=== PATIENT | female | born 1975 | race Hispanic/Latino ===

== ENCOUNTER 2016-09-07 15:28 | Inpatient (IN) | payer MEDICAID ==
[2016-09-07 16:17] LABS: Basophils % (Auto) 0.1 % (0.0-1.8); Hematocrit 30.9 % (30.3-42.9); Mean Corpuscular HGB Conc 32 % (30-34); Mean Corpuscular Volume 80 fl (79-97); Platelet Count 236 K/mm3 (140-440); Red Blood Count 3.89 M/mm3 (3.65-5.03); Red Cell Distribution Width 17.7 % (13.2-15.2); White Blood Count 4.4 K/mm3 (4.5-11.0)
[2016-09-07 16:18] LABS: Mean Corpuscular Hemoglobin 26 pg (28-32)
[2016-09-07 16:36] LABS: Anion Gap 21 mmol/L; BUN/Creatinine Ratio 11.42; Blood Urea Nitrogen 8 mg/dL (7-17); Calcium 7.5 mg/dL (8.4-10.2); Carbon Dioxide 16 mmol/L (22-30); Chloride 108.1 mmol/L (98-107); Glucose 82 mg/dL (65-100); Potassium 3.9 mmol/L (3.6-5.0); Sodium 141 mmol/L (137-145)
[2016-09-07 18:31] LABS: INR 1.4 (0.87-1.13); Partial Thromboplastin Time 37.6 Sec. (24.2-36.6)
--- NOTE | 2016-09-07 20:02 | XRay Report ---
FINAL REPORT PROCEDURE: XR CHEST 1V AP TECHNIQUE: Chest radiograph anteroposterior view. CPT 39113 HISTORY: Shortness of breath and chest pain COMPARISON: No prior studies are available for comparison. FINDINGS: Heart: Normal. Mediastinum/Vessels: Normal contour. Lungs/Pleural space: No infiltrate, effusion, or pneumothorax. Bony thorax: No acute osseous abnormality. Life support devices: Right MediPort catheter tip is in the superior vena cava. IMPRESSION: No radiographic evidence of acute cardiopulmonary abnormality.
[2016-09-07] MEDS ORDERED: NACL 0.9% 500 ML 500 ML IV ONE (20:47)
--- NOTE | 2016-09-07 20:47 | Emergency Department Report ---
HPI - General Chief Complaint: Chest Pain Time Seen by Provider: 09/07/16 20:17 - HPI HPI: This is a 40-year-old Afro-Q[place] female who presents the emergency department with complaint of generalized chest pain, shortness of breath and lower extremity swelling is been going on for the past few days. The patient was recently at [facility] for similar symptoms and said she had a cardiac stent placed at that time. She has a history of recently diagnosed leukemia for which she has not yet started any type of chemotherapy or radiation treatment. She also has a history of lupus and hypertension. After leaving [facility] she was supposed to be started on some relative but the insurance would not cover it and therefore she has not been taking any anticoagulation. She does appear to have a previous history of CVA and pulmonary embolism as well. Her primary care physician is also her oncologist and that is Dr. Garza but she says she has been unable to get in touch with him. She does not have a color stripper. ED Past Medical Hx - Past Medical History Previous Medical History?: Yes Hx Hypertension: Yes Hx CVA: Yes Hx Congestive Heart Failure: Yes Hx Seizures: Yes Additional medical history: Lupas, Pulmonary embolus - Surgical History Past Surgical History?: Yes Additional Surgical History: Right chest port - Social History Smoking Status: Never Smoker Substance Use Type: Prescribed ED Review of Systems ROS: Stated complaint: CHEST PAIN/LAURIE/ABD PAIN Other details as noted in HPI Comment: All other systems reviewed and negative Constitutional: denies: chills, fever Eyes: denies: eye pain, eye discharge, vision change Respiratory: shortness of breath. denies: cough Cardiovascular: chest pain, edema Gastrointestinal: denies: abdominal pain, nausea, diarrhea Genitourinary: denies: urgency, dysuria, discharge Musculoskeletal: denies: back pain, joint swelling, arthralgia Skin: denies: rash, lesions Neurological: denies: headache, weakness, paresthesias Physical Exam - Physical Exam Vital Signs: Vital Signs 09/07/16 09/07/16 09/07/16 15:42 18:48 19:04 Temperature 98.6 F 98.5 F Pulse Rate 120 H 16 L Respiratory 20 16 16 Rate Blood Pressure 110/79 Blood Pressure 107/76 [Left] O2 Sat by Pulse 100 100 100 Oximetry 09/07/16 19:26 Temperature 98 F Pulse Rate 83 Respiratory 18 Rate Blood Pressure Blood Pressure 105/75 [Left] O2 Sat by Pulse 100 Oximetry Physical Exam: GENERAL: The patient is well-developed well-nourished. HEENT: Normocephalic. Atraumatic. Extraocular motions are intact. Patient has moist mucous membranes. Pupils equal reactive to light bilaterally. NECK: Supple. Trachea is midline. CHEST/LUNGS: Clear to auscultation. There is no respiratory distress noted. There is a port in the right chest wall. HEART/CARDIOVASCULAR: Regular. There is mild to moderate tachycardia. There is no gallop rub or murmur. Chest pain is not reproducible to palpation of chest wall. ABDOMEN: Abdomen is soft, nontender. Patient has normal bowel sounds. There is no abdominal distention. SKIN: Skin is warm and dry. There is some mild pitting edema to the bilateral lower extremities. NEURO: The patient is awake, alert, and oriented. The patient is cooperative. The patient has no focal neurologic deficits. The patient has normal speech. MUSCULOSKELETAL: There is no tenderness or deformity. There is no limitation range of motion. There is no evidence of acute injury. ED Course Vital Signs 09/07/16 09/07/16 09/07/16 15:42 18:48 19:04 Temperature 98.6 F 98.5 F Pulse Rate 120 H 16 L Respiratory 20 16 16 Rate Blood Pressure 110/79 Blood Pressure 107/76 [Left] O2 Sat by Pulse 100 100 100 Oximetry 09/07/16 19:26 Temperature 98 F Pulse Rate 83 Respiratory 18 Rate Blood Pressure Blood Pressure 105/75 [Left] O2 Sat by Pulse 100 Oximetry ED Medical Decision Making - Lab Data Result diagrams: 09/07/16 16:00 09/07/16 16:00 - EKG Data -: EKG Interpreted by Me EKG shows normal: sinus rhythm, axis (left axis deviation), intervals, QRS complexes (low voltage), ST-T waves (nonspecific ST-T changes) Rate: tachycardia (120 bpm) - EKG Data When compared to previous EKG there are: previous EKG unavailable Interpretation: other (left axis deviation, low voltage QRS, nonspecific ST-T changes, tachycardic) - Radiology Data Radiology results: report reviewed, image reviewed interpreted by me: Chest x-ray did not show any acute process. Heart is normal shape and size. No effusions. No pneumothorax. No signs of pneumonia seen. CT angiography of the chest does not show any pulmonary embolism, dissection or any acute process. - Medical Decision Making 40-year-old female with history of lupus, leukemia and recent cardiac stent who presents with chest pain, shortness of breath and lower extremity edema. Patient's labs have mostly been unremarkable except for a slightly elevated and equivocal d-dimer. CT angiography did not show any PE, dissection or any acute process. However the patient has received multiple doses of pain medication and some IV fluid resuscitation and she still remains quite tachycardic. She also continues to complain of chest discomfort. For these reasons the patient will be admitted to hospital for further evaluation and treatment and has been accepted for admission by the hospitalist, Dr. Mo. - Differential Diagnosis TN, PE, CHF, pneumonia, costochondritis Critical Care Time: No Critical care attestation.: If time is entered above; I have spent that time in minutes in the direct care of this critically ill patient, excluding procedure time. ED Disposition Clinical Impression: Tachycardia, Lower extremity edema Dyspnea Qualifiers: Dyspnea type: shortness of breath Qualified Code(s): R06.02 - Shortness of breath Chest pain Qualifiers: Chest pain type: unspecified Qualified Code(s): R07.9 - Chest pain, unspecified Lupus Qualifiers: Systemic lupus erythematosus type: unspecified Systemic lupus erythematosus organ involvement: unspecified Qualified Code(s): M32.9 - Systemic lupus erythematosus, unspecified Disposition: OP ADMIT IP TO THIS HOSP Is pt being admited?: Yes Does the pt Need Aspirin: Yes Condition: Stable Instructions: Chest Pain (ED) Referrals: PRIMARY CARE, [Primary Care Provider] - 3-5 Days Time of Disposition: 00:02
[2016-09-07] MEDS ORDERED: SUBLIMAZE IV ONE ×2 (20:48→21:00)
[2016-09-07] MEDS ORDERED: NACL ONE (21:28)
--- NOTE | 2016-09-07 22:31 | Cat Scan Report ---
FINAL REPORT PROCEDURE: CT ANGIO CHEST TECHNIQUE: Computerized tomographic angiography of the chest was performed after the IV injection of iodinated nonionic contrast including image processing. The image data was postprocessed using 2-dimensional multiplanar reformatted (MPR) and 3-dimensional (MIP and/or volume rendered) techniques. HISTORY: Chest pain, elevated dimer COMPARISON: Radiograph 09/07/2016 FINDINGS: Bilateral breast implants are present. Right MediPort catheter is in place, tip at the cavoatrial junction. Heart and pericardium: No pericardial effusion or thickening. Thoracic aorta: No aneurysm or dissection. Pulmonary vasculature: Normal. Lymph nodes: Right axillary lymph nodes measure up to 7 millimeters in short axis. Lungs: Normal. Pleural space: No effusion, thickening, or pneumothorax. Musculoskeletal structures: No significant abnormality. Upper abdominal structures: No significant abnormality. IMPRESSION: No evidence of pulmonary emboli
[2016-09-07] MEDS ORDERED: DILAUDID IV ONE (23:27)
[2016-09-07] MEDS ORDERED: HEPARIN SUB-Q SCH (23:45)
--- NOTE | 2016-09-07 23:56 | History and Physical Report ---
History of Present Illness Date of examination: 09/07/16 Date of admission: 09/07/16 History of present illness: HPI: 40-year-old Afro-Irish female presents to the emergency department with complaint of generalized chest pain, shortness of breath and lower extremity swelling for the past few days. The patient was recently at [facility] for similar symptoms and had a cardiac stent placed at that time. She has a history of recently diagnosed leukemia for which she has not yet started any type of chemotherapy or radiation treatment. She also has a history of lupus and hypertension. After leaving [facility] she was supposed to be started on some medicine but the insurance would not cover it and therefore she has not been taking any chemo but very poor historian.. She does appear to have a previous history of CVA and pulmonary embolism as well. Her primary care physician /oncologist is Dr. Garza . She does not have a security services specialist. ED Past Medical Hx - Past Medical History Previous Medical History?: Yes Hx Hypertension: Yes Hx CVA: Yes Hx Congestive Heart Failure: Yes Hx Seizures: Yes Additional medical history: Lupus, Pulmonary embolus - Surgical History Past Surgical History?: Yes Additional Surgical History: Right chest port - Social History Smoking Status: Never Smoker Substance Use Type: Prescribed ED Review of Systems ROS: Stated complaint: CHEST PAIN/LAURIE/ABD PAIN Other details as noted in HPI Comment: All other systems reviewed and negative Constitutional: denies: chills, fever Eyes: denies: eye pain, eye discharge, vision change Respiratory: shortness of breath. denies: cough Cardiovascular: chest pain, edema Gastrointestinal: denies: abdominal pain, nausea, diarrhea Genitourinary: denies: urgency, dysuria, discharge Musculoskeletal: denies: back pain, joint swelling, arthralgia Skin: denies: rash, lesions Neurological: denies: headache, weakness, paresthesias Past History Past Surgical History: Other (Port) Social history: no significant social history, full code. denies: smoking, alcohol abuse, prescription drug abuse Family history: hypertension Medications and Allergies Allergies Allergy/AdvReac Type Severity Reaction Status Date / Time meperidine HCl [From Demerol] Allergy Shortness Verified 09/07/16 15:41 of Breath metoclopramide HCl Allergy Shortness Verified 09/07/16 15:41 [From Reglan] of Breath metronidazole [From Flagyl] Allergy Hives Verified 09/07/16 15:41 morphine Allergy Shortness Verified 09/07/16 15:41 of Breath Active Meds: Active Medications Heparin Sodium (Porcine) (Heparin) 5,000 unit SUB-Q Q8HR SARTHAK Review of Systems All systems: negative Exam - Physical Exam Narrative exam: In slight distress sec to pain all over. - Constitutional Vitals: Temp Pulse Resp BP Pulse Ox 98 F 118 H 18 113/76 100 09/07/16 19:26 09/07/16 23:18 09/07/16 23:18 09/07/16 23:18 09/07/16 23:18 General appearance: Present: no acute distress, well-nourished - EENT Eyes: Present: PERRL ENT: hearing intact, clear oral mucosa - Neck Neck: Present: supple, normal ROM - Respiratory Respiratory effort: normal Respiratory: bilateral: CTA - Cardiovascular Heart Sounds: Present: S1 & S2. Absent: rub, click - Extremities Extremities: pulses symmetrical, No edema Peripheral Pulses: within normal limits - Abdominal General gastrointestinal: Present: soft, non-tender, non-distended, normal bowel sounds Female genitourinary: Present: normal - Integumentary Integumentary: Present: clear, warm, dry - Musculoskeletal Musculoskeletal: gait normal, strength equal bilaterally - Psychiatric Psychiatric: appropriate mood/affect, intact judgment & insight - Neurologic Neurologic: CNII-XII intact, moves all extremities - Allied Health Allied health notes reviewed: nursing Results - Labs CBC & Chem 7: 09/07/16 16:00 09/07/16 16:00 Labs: Laboratory Last Values WBC 4.4 K/mm3 (4.5-11.0) L 09/07/16 16:00 RBC 3.89 M/mm3 (3.65-5.03) 09/07/16 16:00 Hgb 10.0 gm/dl (10.1-14.3) L 09/07/16 16:00 Hct 30.9 % (30.3-42.9) 09/07/16 16:00 MCV 80 fl (79-97) 09/07/16 16:00 MCH 26 pg (28-32) L 09/07/16 16:00 MCHC 32 % (30-34) 09/07/16 16:00 RDW 17.7 % (13.2-15.2) H 09/07/16 16:00 Plt Count 236 K/mm3 (140-440) 09/07/16 16:00 Lymph % (Auto) 12.0 % (13.4-35.0) L 09/07/16 16:00 [place] % (Auto) 3.4 % (0.0-7.3) 09/07/16 16:00 Eos % (Auto) 0.0 % (0.0-4.3) 09/07/16 16:00 Baso % (Auto) 0.1 % (0.0-1.8) 09/07/16 16:00 Lymph # 0.5 K/mm3 (1.2-5.4) L 09/07/16 16:00 [place] # 0.1 K/mm3 (0.0-0.8) 09/07/16 16:00 Eos # 0.0 K/mm3 (0.0-0.4) 09/07/16 16:00 Baso # 0.0 K/mm3 (0.0-0.1) 09/07/16 16:00 Seg Neutrophils % 84.5 % (40.0-70.0) H 09/07/16 16:00 Seg Neutrophils # 3.7 K/mm3 (1.8-7.7) 09/07/16 16:00 PT 17.1 Sec. (12.2-14.9) H 09/07/16 16:05 INR 1.40 (0.87-1.13) H 09/07/16 16:05 APTT 37.6 Sec. (24.2-36.6) H 09/07/16 16:05 D-Dimer 248.86 ng/mlDDU (0-234) H 09/07/16 16:05 Sodium 141 mmol/L (137-145) 09/07/16 16:00 Potassium 3.9 mmol/L (3.6-5.0) 09/07/16 16:00 Chloride 108.1 mmol/L (98-107) H 09/07/16 16:00 Carbon Dioxide 16 mmol/L (22-30) L 09/07/16 16:00 Anion Gap 21 mmol/L 09/07/16 16:00 BUN 8 mg/dL (7-17) 09/07/16 16:00 Creatinine 0.7 mg/dL (0.7-1.2) 09/07/16 16:00 Estimated GFR > 60 ml/min 09/07/16 16:00 BUN/Creatinine Ratio 11.42 % 09/07/16 16:00 Glucose 82 mg/dL (65-100) 09/07/16 16:00 Calcium 7.5 mg/dL (8.4-10.2) L 09/07/16 16:00 Troponin T < 0.010 ng/mL (0.00-0.029) 09/07/16 22:24 HCG, Quant < 2 mIU/mL (0-4) 09/07/16 16:00 Short CBC 09/07/16 Range/Units 16:00 WBC 4.4 L (4.5-11.0) K/mm3 Hgb 10.0 L (10.1-14.3) gm/dl Hct 30.9 (30.3-42.9) % Plt Count 236 (140-440) K/mm3 BMP 09/07/16 16:00 Sodium 141 Potassium 3.9 Chloride 108.1 H Carbon Dioxide 16 L BUN 8 Creatinine 0.7 Glucose 82 Calcium 7.5 L Cardiac Enzymes 09/07/16 09/07/16 09/07/16 Range/Units 16:00 18:10 22:24 Troponin T < 0.010 < 0.010 < 0.010 (0.00-0.029) ng/mL - Imaging and Cardiology EKG: report reviewed (sinus tachycardia heart rate of 120. Nonspecific ST-T wave changes.) Chest x-ray: report reviewed (no radiographic evidence of acute cardiopulmonary abnormality) CT scan - chest: report reviewed (CTA no evidence of pulmonary embolism) Assessment and Plan Assessment and plan: Assessment and plan: 1: Acute coronary syndrome: Patient to get serial cardiac enzymes and Lexiscan. Patient has history of stent placement recently. Patient is a very poor historian and not convincing. 2: SLE flare: Will get a sedimentation rate and dsDNA plus EROS. We will start her on prednisone 20 mg by mouth daily. Her primary care/oncologist consulted. 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 We'll defer to [facility]. 4: Pulmonary embolism by history. No evidence of PE on CT angiogram. Patient started on Lovenox for prophylaxis. Her oncologist/primary care to decide whether patient should be anticoagulated. 5: CVA by history. No residual deficits. Patient advised to continue aspirin 81 mg 2 tablets once daily. 6: DVT prophylaxis: Patient started on Lovenox subcutaneous 40 mg daily Advance Directives: Yes (full code) VTE prophylaxis?: Chemical Plan of care discussed with patient/family: Yes
[2016-09-08] MEDS ORDERED: BABY ASPIRIN PO ONE (00:02)
[2016-09-08] MEDS: DILAUDID IV PRN ×6 (03:25→22:09)
[2016-09-08] MEDS ORDERED: TYLENOL PO PRN (05:06)
[2016-09-08] MEDS ORDERED: MILK OF MAGNESIA PO PRN (05:06)
[2016-09-08] MEDS ORDERED: DULCOLAX PR PRN (05:06)
[2016-09-08] MEDS ORDERED: SODIUM CHLORIDE FLUSH SYRINGE 10 ML IV PRN (05:07)
[2016-09-08] MEDS ORDERED: NACL 0.45% 1000 ML 1,000 ML IV SCH (06:00)
[2016-09-08] MEDS: ZOFRAN IV PRN ×2 (07:45→18:13)
[2016-09-08] MEDS ORDERED: LEXISCAN IV ONE ×2 (08:02→08:10)
[2016-09-08] MEDS: PEPCID IV SCH ×2 (10:53→21:25)
[2016-09-08] MEDS: DELTASONE PO SCH (10:53)
--- NOTE | 2016-09-08 15:39 | Progress Note ---
Assessment and Plan Assessment and plan: Chest pain and shortness of breath. Etiology unclear. Cardiac enzymes normal. CT chest negative for PE. Patient states she had a recent myocardial infarction and stent placed at [facility] 1 week ago. We'll obtain records from [facility]. Consult labor employment associate on-call. History of recent TN and stent placement, one week ago. Details unclear. Start Plavix, metoprolol Leukemia. Managed by Dr. Garza Hypertension. BP stable Acute on chronic CHF. Start lasix, Metoprol DVT prophylaxis History Interval history: chest pain, Shortness of breath, Patient states that she had a myocardial infarction and had stent placed in [facility] last week Hospitalist Physical - Physical exam Narrative exam: Gen: appearance :Not in acute distress, obese HEENT: normocephalic atraumatic Neck :supple no JVD Lungs: Clear to auscultation bilaterally, no crackles, or wheezes,port right chest Heart:S1 and S2 regular, no murmurs, no gallop, no rubs Abdomen soft, nontender, nondistended, normal bowel sounds Extremities: Edema bilateral lower ext,edema upper ext, no clubbing, or cyanosis Neuro : Awake alert oriented 3, no focal neurological signs Psych: calm - Constitutional Vitals: Temp Pulse Resp BP Pulse Ox 97.8 F 119 H 12 119/83 100 09/08/16 11:15 09/08/16 11:15 09/08/16 11:15 09/08/16 11:15 09/08/16 11:15 Results - Labs CBC & Chem 7: 09/09/16 17:00 09/09/16 05:20 Labs: Laboratory Last Values WBC 4.4 K/mm3 (4.5-11.0) L 09/07/16 16:00 RBC 3.89 M/mm3 (3.65-5.03) 09/07/16 16:00 Hgb 10.0 gm/dl (10.1-14.3) L 09/07/16 16:00 Hct 30.9 % (30.3-42.9) 09/07/16 16:00 MCV 80 fl (79-97) 09/07/16 16:00 MCH 26 pg (28-32) L 09/07/16 16:00 MCHC 32 % (30-34) 09/07/16 16:00 RDW 17.7 % (13.2-15.2) H 09/07/16 16:00 Plt Count 236 K/mm3 (140-440) 09/07/16 16:00 Lymph % (Auto) 12.0 % (13.4-35.0) L 09/07/16 16:00 [place] % (Auto) 3.4 % (0.0-7.3) 09/07/16 16:00 Eos % (Auto) 0.0 % (0.0-4.3) 09/07/16 16:00 Baso % (Auto) 0.1 % (0.0-1.8) 09/07/16 16:00 Lymph # 0.5 K/mm3 (1.2-5.4) L 09/07/16 16:00 [place] # 0.1 K/mm3 (0.0-0.8) 09/07/16 16:00 Eos # 0.0 K/mm3 (0.0-0.4) 09/07/16 16:00 Baso # 0.0 K/mm3 (0.0-0.1) 09/07/16 16:00 Seg Neutrophils % 84.5 % (40.0-70.0) H 09/07/16 16:00 Seg Neutrophils # 3.7 K/mm3 (1.8-7.7) 09/07/16 16:00 PT 17.1 Sec. (12.2-14.9) H 09/07/16 16:05 INR 1.40 (0.87-1.13) H 09/07/16 16:05 APTT 37.6 Sec. (24.2-36.6) H 09/07/16 16:05 D-Dimer 248.86 ng/mlDDU (0-234) H 09/07/16 16:05 Sodium 141 mmol/L (137-145) 09/07/16 16:00 Potassium 3.9 mmol/L (3.6-5.0) 09/07/16 16:00 Chloride 108.1 mmol/L (98-107) H 09/07/16 16:00 Carbon Dioxide 16 mmol/L (22-30) L 09/07/16 16:00 Anion Gap 21 mmol/L 09/07/16 16:00 BUN 8 mg/dL (7-17) 09/07/16 16:00 Creatinine 0.7 mg/dL (0.7-1.2) 09/07/16 16:00 Estimated GFR > 60 ml/min 09/07/16 16:00 BUN/Creatinine Ratio 11.42 % 09/07/16 16:00 Glucose 82 mg/dL (65-100) 09/07/16 16:00 Calcium 7.5 mg/dL (8.4-10.2) L 09/07/16 16:00 Troponin T < 0.010 ng/mL (0.00-0.029) 09/07/16 22:24 HCG, Quant < 2 mIU/mL (0-4) 09/07/16 16:00
[2016-09-08] MEDS: PLAVIX PO SCH (18:13)
[2016-09-08] MEDS: LASIX IV SCH (18:13)
[2016-09-08 19:04] LABS: Creatine Kinase 37 units/L (30-135)
[2016-09-08] MEDS: LOPRESSOR PO SCH (21:24)
[2016-09-08] MEDS: LOVENOX SUB-Q SCH (21:24)
[2016-09-08] MEDS: BENADRYL IV PRN (22:09)
--- NOTE | 2016-09-08 23:37 | Consultation ---
History of Present Illness - Reason for Consult Consult date: 09/08/16 Bicytopenia. Requesting physician: NORMA HOUSTON - History of Present Illness Thank you for this consult, patient seen/examined, record reviewed, case d/ w patient.. She was recently at [facility], and before that, she was at [facility]. she has hx of right UE DVT, and was on xeralto for some time until her insurance stopped paying, as per her. She has not been compliant with office visit with me. Her story of leukemia, has yet to be substantiated.No real record so far.I spoke with [facility], and they could not find any record either.She has a lot of family social issues including homeless. She has been at shelters.CTA this admission negative. I will check US of her right UE to see if her previou clot have resolved with anticoagulation.Will also check flow to see if any leukemic cells, There is none on her prepheral blood.She is still claiming CP..She has hx of chronic narcotic dependence. Past History Past Medical History: anemia Past Surgical History: Other (Port) Social history: no significant social history, full code. denies: smoking, alcohol abuse, prescription drug abuse Family history: hypertension Medications and Allergies Allergies Allergy/AdvReac Type Severity Reaction Status Date / Time meperidine HCl [From Demerol] Allergy Shortness Verified 09/07/16 15:41 of Breath metoclopramide HCl Allergy Shortness Verified 09/07/16 15:41 [From Reglan] of Breath metronidazole [From Flagyl] Allergy Hives Verified 09/07/16 15:41 morphine Allergy Shortness Verified 09/07/16 15:41 of Breath Active Meds: Active Medications Acetaminophen (Tylenol) 650 mg PO Q4H PRN PRN Reason: Pain MILD(1-3)/Fever >100.5/PACE Bisacodyl (Dulcolax) 10 mg MI QDAY PRN PRN Reason: Constipation unrelieved by MOM Clopidogrel Bisulfate (Plavix) 75 mg PO QDAY SARTHAK Last Admin: 09/08/16 18:13 Dose: 75 mg Diphenhydramine HCl (Benadryl) 25 mg IV Q6H PRN PRN Reason: Itching Last Admin: 09/08/16 22:09 Dose: 25 mg Enoxaparin Sodium (Lovenox) 40 mg SUB-Q QDAY@2200 [facility] Last Admin: 09/08/16 21:24 Dose: 40 mg Famotidine (Pepcid) 20 mg IV BID [facility] Last Admin: 09/08/16 21:25 Dose: 20 mg Furosemide (Lasix) 20 mg IV 0600,1800 [facility] Last Admin: 09/08/16 18:13 Dose: 20 mg Hydromorphone HCl (Dilaudid) 1 mg IV Q3H PRN PRN Reason: Pain , Severe (7-10) Last Admin: 09/08/16 22:09 Dose: 1 mg Sodium Chloride (Nacl 0.45% 1000 Ml) 1,000 mls @ 75 mls/hr IV DIRECT [facility] Stop: 09/09/16 05:00 Magnesium Hydroxide (Milk Of Magnesia) 30 ml PO Q4H PRN PRN Reason: Constipation Metoprolol Tartrate (Lopressor) 25 mg PO BID [facility] Last Admin: 09/08/16 21:24 Dose: 25 mg Ondansetron HCl (Zofran) 4 mg IV Q3H PRN PRN Reason: N/V unrelieved by Reglan Last Admin: 09/08/16 18:13 Dose: 4 mg Prednisone (Deltasone) 20 mg PO QDAY [facility] Last Admin: 09/08/16 10:53 Dose: 20 mg Sodium Chloride (Sodium Chloride Flush Syringe 10 Ml) 10 ml IV PRN PRN PRN Reason: LINE FLUSH Review of Systems Constitutional: chronic pain Breasts: deferred Exam - Constitutional Vitals: Temp Pulse Resp BP Pulse Ox 97.7 F 122 H 20 116/94 100 09/08/16 20:52 09/08/16 20:52 09/08/16 20:52 09/08/16 20:52 09/08/16 20:52 General appearance: Present: mild distress, well-nourished - EENT Eyes: Present: PERRL ENT: hearing intact, clear oral mucosa - Neck Neck: Present: supple, normal ROM - Respiratory Respiratory effort: normal Respiratory: bilateral: CTA - Cardiovascular Heart Sounds: Present: S1 & S2. Absent: rub, click - Extremities Extremities: pulses symmetrical, No edema Peripheral Pulses: within normal limits - Abdominal General gastrointestinal: Present: soft, non-tender, non-distended, normal bowel sounds Female genitourinary: Present: deferred - Integumentary Integumentary: Present: clear, warm, dry - Musculoskeletal Musculoskeletal: gait normal, strength equal bilaterally - Psychiatric Psychiatric: appropriate mood/affect, intact judgment & insight - Neurologic Neurologic: CNII-XII intact, moves all extremities Results - Labs CBC & Chem 7: 09/07/16 16:00 09/07/16 16:00 Assessment and Plan - Patient Problems (1) Chest pain Current Visit: Yes Status: Acute Qualifiers: Chest pain type: unspecified Ischemic chest pain type: I Qualified Code(s ): R07.9 - Chest pain, unspecified (2) Lupus Current Visit: Yes Status: Acute Qualifiers: Systemic lupus erythematosus type: unspecified Systemic lupus erythematosus organ involvement: unspecified Qualified Code(s): M32.9 - Systemic lupus erythematosus, unspecified Plan to address problem: will do a panel to see if any evidence.
--- NOTE | 2016-09-08 23:51 | Admit Criteria Form ---
Admission Criteria Documentation: TELEMETRY CARE Telemetry Admission Guidelines (Place 'X' for any and all applicable criteria): Admission to telemetry [A] may be indicated for ANY ONE of the following(1)(2)(3 )(4)(5): [ X]I. Cardiac disease, including ANY ONE of the following (9)(10)(11)(12)( 13): [ ]a) Postacute CO [ ]b) Low-risk patients with ST-segment elevation CO who have undergone successful percutaneous coronary intervention [ ]c) Unstable angina [ ]d) Suspected CO (until it is ruled out) [ ]e) Post cardiac surgery (first 48 to 72 hours unless complications occur) [X ]f) Acute arrhythmias (including significant tachycardia or bradycardia) [B] [ ]g) Firing of an implantable cardioverter defibrillator [C] [ ]h) Suspected pacemaker or implantable cardioverter defibrillator malfunction (10) [ ]i) New administration or adjustment of an antiarrhythmic drug [D ] [ ]j) Child admitted for acute congestive heart failure [ ]j) Long QT syndrome [ ]k) Advanced heart block (eg, second-degree Mobitz type II, third- degree heart block) [ ]l) Acute myocarditis or pericarditis [ ]m) Short-term (ambulatory or inpatient) monitoring after a cardiac procedure as indicated by ANY ONE of the following [E]: [ ]i) Electrophysiologic studies [ ]ii) Percutaneous coronary intervention with stent placement [ ]iii) Pacemaker placement with cardiac conduction defect [ ]iv) Implantable cardiac defibrillator placement [ ]II. Drug overdose or poisoning with substance that causes arrhythmias or QT prolongation (eg, phenothiazines, sympathomimetic agents, cyclic antidepressants, digitalis, antiarrhythmic drugs)(15) [ ]III. Short-term (ambulatory or inpatient) monitoring after therapeutic or diagnostic procedure requiring conscious sedation or anesthesia (eg, endoscopy, elective cardioversion) [ ]IV. Acute cerebrovascular even[F](18) [ ]V. Massive blood transfusion (eg, at least 10 units of packed red blood cells in 24 hours) [ ]. Variceal bleeding after endoscopy, sclerotherapy, or IV vasopressin [ ]VII. Uncorrected electrolyte abnormalities associated with an increased risk of dangerous arrhythmia [G]; examples include [ ]a) Hyperkalemia with attributable ECG changes [ ]b) Potassium greater than 6.5 mmol/L (mEq/L) in a patient without history of chronic renal disease [ ]c) Prolonged QT attributed to hypokalemia, hypomagnesemia, or hypocalcemia [ ]VIII.Unexplained syncope or other neurologic event suspected of being due to arrhythmia due to a finding that increases risk; examples include(19)(20)(21): [ ]a) High-risk ECG findings (eg, bifascicular block, bradycardia, abnormal QT interval, ventricular pre- excitation) [ ]b) History of previous syncope due to arrhythmia [ ]c) Abnormal ventricular function (eg, reduced ejection fraction ) [ ]d) Exertional or supine syncope [ ]e) Concerning syncope characteristics (eg, sudden loss of consciousness without prodrome) [ ]f) Family history of sudden [ ]g) Use of arrhythmogenic medication [ ]h) Suspected cardiac ischemia [ ]i) Known channelopathy (eg, long QT syndrome, Brugada syndrome, or catecholaminergic paroxysmal ventricular tachycardia) [ ]j) Known structural heart disease (eg, hypertrophic cardiomyopathy , severe valvular disease) [ ]k) Palpitations preceding syncope The original [employer] content created by [employer] has been revised. The portions of the content which have been revised are identified through the use of italic text or in bold, and [email or web address] has neither reviewed nor approved the modified material. All other unmodified content is copyright [employer]. Please see references footnoted in the original [employer] edition 2016 Admission Criteria Met: Yes
[2016-09-09] MEDS: LASIX IV SCH ×2 (05:11→17:22)
[2016-09-09 05:33] LABS: Hematocrit 24.9 % (30.3-42.9); Hemoglobin 8.2 gm/dl (10.1-14.3); Mean Corpuscular HGB Conc 33 % (30-34); Mean Corpuscular Volume 77 fl (79-97); Platelet Count 196 K/mm3 (140-440); Red Blood Count 3.26 M/mm3 (3.65-5.03); Red Cell Distribution Width 17.2 % (13.2-15.2); White Blood Count 3.3 K/mm3 (4.5-11.0)
[2016-09-09 05:37] LABS: Mean Corpuscular Hemoglobin 25 pg (28-32)
[2016-09-09 06:03] LABS: Alanine Aminotransferase 35 units/L (7-56); Albumin 2.3 g/dL (3.9-5); Albumin/Globulin Ratio 1.4 %; Alkaline Phosphatase 40 units/L (35-129); BUN/Creatinine Ratio 13.33; Blood Urea Nitrogen 8 mg/dL (7-17); Calcium 7.2 mg/dL (8.4-10.2); Glucose 72 mg/dL (65-100); Potassium 3.3 mmol/L (3.6-5.0); Sodium 142 mmol/L (137-145)
[2016-09-09 06:07] LABS: Anion Gap 16 mmol/L; Carbon Dioxide 23 mmol/L (22-30)
[2016-09-09 06:42] LABS: Basophils % (Manual) 0 % (0.0-1.8); Blastocytes % (Manual) 0 %; Eosinophils % (Manual) 0 % (0.0-4.3)
[2016-09-09 06:43] LABS: Anisocytosis 1+; Diff Status Complete; Hypochromasia 1+; Platelet Estimate Consistent w Auto; Schistocytes Rare
[2016-09-09] MEDS: BENADRYL IV PRN ×3 (08:06→20:21)
[2016-09-09] MEDS: DILAUDID IV PRN ×4 (08:07→20:22)
--- NOTE | 2016-09-09 09:13 | Progress Note ---
Assessment and Plan Assessment and plan: Chest pain and shortness of breath. Etiology unclear. Cardiac enzymes normal. CT chest negative for PE. Patient states she had a recent myocardial infarction and stent placed at [facility] 1 week ago. However cardiology reviewed records from [facility] and [place] this is untrue-she had normal cath, no stent. Leukemia. Managed by Dr. Garza Hypertension. BP stable Acute on chronic CHF. continue Metoprol Acute DVT left upper ext. Will start Xarelto. She was on Xarelto for DVT but stopped taking meds Full code status History Interval history: chest pain, Shortness of breath, Patient states that she had a myocardial infarction and had stent placed in [place] last week. However cardiology reviewed records from [facility] and states this is not true Hospitalist Physical - Physical exam Narrative exam: Gen: appearance :Not in acute distress, obese HEENT: normocephalic atraumatic Neck :supple no JVD Lungs: Clear to auscultation bilaterally, no crackles, or wheezes,port right chest Heart:S1 and S2 regular, no murmurs, no gallop, no rubs Abdomen soft, nontender, nondistended, normal bowel sounds Extremities: Edema bilateral lower ext,edema upper ext, no clubbing, or cyanosis Neuro : Awake alert oriented 3, no focal neurological signs Psych: calm - Constitutional Vitals: Temp Pulse Resp BP Pulse Ox 98.2 F 60 20 170/100 99 09/09/16 05:01 09/09/16 05:01 09/09/16 08:37 09/09/16 05:01 09/09/16 05:01 General appearance: Present: mild distress, well-nourished Results - Labs CBC & Chem 7: 09/09/16 17:00 09/09/16 05:20 Labs: Laboratory Last Values WBC 3.3 K/mm3 (4.5-11.0) L 09/09/16 05:20 RBC 3.26 M/mm3 (3.65-5.03) L 09/09/16 05:20 Hgb 8.2 gm/dl (10.1-14.3) L 09/09/16 05:20 Hct 24.9 % (30.3-42.9) L D 09/09/16 05:20 MCV 77 fl (79-97) L D 09/09/16 05:20 MCH 25 pg (28-32) L 09/09/16 05:20 MCHC 33 % (30-34) 09/09/16 05:20 RDW 17.2 % (13.2-15.2) H 09/09/16 05:20 Plt Count 196 K/mm3 (140-440) 09/09/16 05:20 Lymph % (Auto) 12.0 % (13.4-35.0) L 09/07/16 16:00 Hood % (Auto) 3.4 % (0.0-7.3) 09/07/16 16:00 Eos % (Auto) 0.0 % (0.0-4.3) 09/07/16 16:00 Baso % (Auto) 0.1 % (0.0-1.8) 09/07/16 16:00 Lymph # 0.5 K/mm3 (1.2-5.4) L 09/07/16 16:00 Hood # 0.1 K/mm3 (0.0-0.8) 09/07/16 16:00 Eos # 0.0 K/mm3 (0.0-0.4) 09/07/16 16:00 Baso # 0.0 K/mm3 (0.0-0.1) 09/07/16 16:00 Add Manual Diff Complete 09/09/16 05:20 Total Counted 100 09/09/16 05:20 Seg Neutrophils % 84.5 % (40.0-70.0) H 09/07/16 16:00 Seg Neuts % (Manual) 57.0 % (40.0-70.0) 09/09/16 05:20 Band Neutrophils % 0 % 09/09/16 05:20 Lymphocytes % (Manual) 35.0 % (13.4-35.0) 09/09/16 05:20 Reactive Lymphs % (Man) 0 % 09/09/16 05:20 Monocytes % (Manual) 8.0 % (0.0-7.3) H 09/09/16 05:20 Eosinophils % (Manual) 0 % (0.0-4.3) 09/09/16 05:20 Basophils % (Manual) 0 % (0.0-1.8) 09/09/16 05:20 Metamyelocytes % 0 % 09/09/16 05:20 Myelocytes % 0 % 09/09/16 05:20 Promyelocytes % 0 % 09/09/16 05:20 Blast Cells % 0 % 09/09/16 05:20 Nucleated RBC % Not Reportable 09/09/16 05:20 Seg Neutrophils # 3.7 K/mm3 (1.8-7.7) 09/07/16 16:00 Seg Neutrophils # Man 1.9 K/mm3 (1.8-7.7) 09/09/16 05:20 Band Neutrophils # 0.0 K/mm3 09/09/16 05:20 Lymphocytes # (Manual) 1.2 K/mm3 (1.2-5.4) 09/09/16 05:20 Abs React Lymphs (Man) 0.0 K/mm3 09/09/16 05:20 Monocytes # (Manual) 0.3 K/mm3 (0.0-0.8) 09/09/16 05:20 Eosinophils # (Manual) 0.0 K/mm3 (0.0-0.4) 09/09/16 05:20 Basophils # (Manual) 0.0 K/mm3 (0.0-0.1) 09/09/16 05:20 Metamyelocytes # 0.0 K/mm3 09/09/16 05:20 Myelocytes # 0.0 K/mm3 09/09/16 05:20 Promyelocytes # 0.0 K/mm3 09/09/16 05:20 Blast Cells # 0.0 K/mm3 09/09/16 05:20 WBC Morphology Not Reportable 09/09/16 05:20 Hypersegmented Neuts Not Reportable 09/09/16 05:20 Hyposegmented Neuts Not Reportable 09/09/16 05:20 Hypogranular Neuts Not Reportable 09/09/16 05:20 Smudge Cells Not Reportable 09/09/16 05:20 Toxic Granulation Not Reportable 09/09/16 05:20 Toxic Vacuolation Not Reportable 09/09/16 05:20 Dohle Bodies Not Reportable 09/09/16 05:20 Pelger-Huet Anomaly Not Reportable 09/09/16 05:20 Brad Rods Not Reportable 09/09/16 05:20 Platelet Estimate Consistent w auto 09/09/16 05:20 Clumped Platelets Not Reportable 09/09/16 05:20 Plt Clumps, EDTA Not Reportable 09/09/16 05:20 Large Platelets Not Reportable 09/09/16 05:20 Giant Platelets Not Reportable 09/09/16 05:20 Platelet Satelliting Not Reportable 09/09/16 05:20 Plt Morphology Comment Not Reportable 09/09/16 05:20 RBC Morphology Not Reportable 09/09/16 05:20 Dimorphic RBCs Not Reportable 09/09/16 05:20 Polychromasia Not Reportable 09/09/16 05:20 Hypochromasia 1+ 09/09/16 05:20 Poikilocytosis Not Reportable 09/09/16 05:20 Anisocytosis 1+ 09/09/16 05:20 Microcytosis Not Reportable 09/09/16 05:20 Macrocytosis Not Reportable 09/09/16 05:20 Spherocytes Not Reportable 09/09/16 05:20 Pappenheimer Bodies Not Reportable 09/09/16 05:20 Sickle Cells Not Reportable 09/09/16 05:20 Target Cells Not Reportable 09/09/16 05:20 Tear Drop Cells Not Reportable 09/09/16 05:20 Ovalocytes Not Reportable 09/09/16 05:20 Helmet Cells Not Reportable 09/09/16 05:20 [place] Bodies Not Reportable 09/09/16 05:20 [place] Rings Not Reportable 09/09/16 05:20 Rhame Cells Not Reportable 09/09/16 05:20 Bite Cells Not Reportable 09/09/16 05:20 Crenated Cell Not Reportable 09/09/16 05:20 Elliptocytes Not Reportable 09/09/16 05:20 Acanthocytes (Spur) Not Reportable 09/09/16 05:20 Rouleaux Not Reportable 09/09/16 05:20 Hemoglobin C Crystals Not Reportable 09/09/16 05:20 Schistocytes Rare 09/09/16 05:20 Malaria parasites Not Reportable 09/09/16 05:20 ESR 1 mm/Hr (0-20) 09/08/16 18:25 Johan Bodies Not Reportable 09/09/16 05:20 Hem Pathologist Commnt No 09/09/16 05:20 PT 17.1 Sec. (12.2-14.9) H 09/07/16 16:05 INR 1.40 (0.87-1.13) H 09/07/16 16:05 APTT 37.6 Sec. (24.2-36.6) H 09/07/16 16:05 D-Dimer 248.86 ng/mlDDU (0-234) H 09/07/16 16:05 Sodium 142 mmol/L (137-145) 09/09/16 05:20 Potassium 3.3 mmol/L (3.6-5.0) L 09/09/16 05:20 Chloride 106.0 mmol/L (98-107) 09/09/16 05:20 Carbon Dioxide 23 mmol/L (22-30) D 09/09/16 05:20 Anion Gap 16 mmol/L 09/09/16 05:20 BUN 8 mg/dL (7-17) 09/09/16 05:20 Creatinine 0.6 mg/dL (0.7-1.2) L 09/09/16 05:20 Estimated GFR > 60 ml/min 09/09/16 05:20 BUN/Creatinine Ratio 13.33 % 09/09/16 05:20 Glucose 72 mg/dL (65-100) 09/09/16 05:20 Calcium 7.2 mg/dL (8.4-10.2) L 09/09/16 05:20 Total Bilirubin 0.50 mg/dL (0.1-1.2) 09/09/16 05:20 AST 20 units/L (5-40) 09/09/16 05:20 ALT 35 units/L (7-56) 09/09/16 05:20 Alkaline Phosphatase 40 units/L (35-129) 09/09/16 05:20 Total Creatine Kinase 37 units/L (30-135) 09/08/16 18:25 CK-MB (CK-2) 1.0 ng/mL (0.0-4.0) 09/08/16 18:25 CK-MB (CK-2) Rel Index 2.7 (0-4) 09/08/16 18:25 Troponin T < 0.010 ng/mL (0.00-0.029) 09/08/16 18:25 NT-Pro-B Natriuret Pep 203.0 pg/mL (0-450) 09/08/16 18:25 Total Protein 4.0 g/dL (6.3-8.2) L 09/09/16 05:20 Albumin 2.3 g/dL (3.9-5) L 09/09/16 05:20 Albumin/Globulin Ratio 1.4 % 09/09/16 05:20 HCG, Quant < 2 mIU/mL (0-4) 09/07/16 16:00
[2016-09-09] MEDS: PLAVIX PO SCH (10:35)
[2016-09-09] MEDS: DELTASONE PO SCH (10:35)
[2016-09-09] MEDS: K-DUR PO SCH (10:35)
[2016-09-09] MEDS: PEPCID IV SCH (10:37)
[2016-09-09] MEDS: LOPRESSOR PO SCH ×2 (10:54→21:32)
--- NOTE | 2016-09-09 12:18 | Consultation ---
History of Present Illness Consult date: 09/09/16 Consult reason: chest pain History of present illness: This is a 40yr old woman who gives a history of Acute Lymphocytic Leukemia, Lupus, Hepatitis C, PE previously on xarelto and HTN. There is no history of coronary artery disease. Just 2 months ago she had extensive cardiac workup at [facility]. She had a cardiac cath that demonstrated normal coronaries. Ejection fraction 60% on echocardiogram. She presents to this hospital with complaints of chest pain and shortness of breath and admitted for rule out ACS protocol with a persantine thallium by the hospitalist team. Labs notable for an acute drop on HCT since admission. Past History Past Medical History: anemia Past Surgical History: Other (Port) Social history: no significant social history, full code. denies: smoking, alcohol abuse, prescription drug abuse Family history: hypertension Medications and Allergies Allergies Allergy/AdvReac Type Severity Reaction Status Date / Time meperidine HCl [From Demerol] Allergy Shortness Verified 09/07/16 15:41 of Breath metoclopramide HCl Allergy Shortness Verified 09/07/16 15:41 [From Reglan] of Breath metronidazole [From Flagyl] Allergy Hives Verified 09/07/16 15:41 morphine Allergy Shortness Verified 09/07/16 15:41 of Breath Active Meds: Active Medications Acetaminophen (Tylenol) 650 mg PO Q4H PRN PRN Reason: Pain MILD(1-3)/Fever >100.5/PACE Bisacodyl (Dulcolax) 10 mg [place] QDAY PRN PRN Reason: Constipation unrelieved by MOM Clopidogrel Bisulfate (Plavix) 75 mg PO QDAY [facility] Last Admin: 09/09/16 10:35 Dose: 75 mg Diphenhydramine HCl (Benadryl) 25 mg IV Q6H PRN PRN Reason: Itching Last Admin: 09/09/16 10:55 Dose: 25 mg Enoxaparin Sodium (Lovenox) 40 mg SUB-Q QDAY@2200 [facility] Last Admin: 09/08/16 21:24 Dose: 40 mg Famotidine (Pepcid) 20 mg PO BID [facility] Furosemide (Lasix) 20 mg IV 0600,1800 [facility] Last Admin: 09/09/16 05:11 Dose: 20 mg Hydromorphone HCl (Dilaudid) 1 mg IV Q3H PRN PRN Reason: Pain , Severe (7-10) Last Admin: 09/09/16 10:55 Dose: 1 mg Magnesium Hydroxide (Milk Of Magnesia) 30 ml PO Q4H PRN PRN Reason: Constipation Metoprolol Tartrate (Lopressor) 25 mg PO BID [facility] Last Admin: 09/09/16 10:54 Dose: 25 mg Ondansetron HCl (Zofran) 4 mg IV Q3H PRN PRN Reason: N/V unrelieved by Reglan Last Admin: 09/08/16 18:13 Dose: 4 mg Potassium Chloride (K-Dur) 40 meq PO QDAY [facility] Stop: 09/12/16 10:01 Last Admin: 09/09/16 10:35 Dose: 40 meq Prednisone (Deltasone) 20 mg PO QDAY [facility] Last Admin: 09/09/16 10:35 Dose: 20 mg Sodium Chloride (Sodium Chloride Flush Syringe 10 Ml) 10 ml IV PRN PRN PRN Reason: LINE FLUSH Physical Examination Vital Signs Temp Pulse Resp BP Pulse Ox 98.6 F 120 H 20 110/79 100 09/07/16 15:42 09/07/16 15:42 09/07/16 15:42 09/07/16 15:42 09/07/16 15:42 General appearance: no acute distress HEENT: Positive: PERRL Neck: Positive: trachea midline Cardiac: Positive: Reg Rate and Rhythm Results 09/09/16 05:20 09/09/16 05:20 Cardiac Enzymes 09/08/16 09/09/16 Range/Units 18:25 05:20 AST 20 (5-40) units/L CK-MB (CK-2) 1.0 (0.0-4.0) ng/mL CBC 09/09/16 Range/Units 05:20 WBC 3.3 L (4.5-11.0) K/mm3 RBC 3.26 L (3.65-5.03) M/mm3 Hgb 8.2 L (10.1-14.3) gm/dl Hct 24.9 L D (30.3-42.9) % Plt Count 196 (140-440) K/mm3 Comprehensive Metabolic Panel 09/09/16 Range/Units 05:20 Sodium 142 (137-145) mmol/L Potassium 3.3 L (3.6-5.0) mmol/L Chloride 106.0 (98-107) mmol/L Carbon Dioxide 23 D (22-30) mmol/L BUN 8 (7-17) mg/dL Creatinine 0.6 L (0.7-1.2) mg/dL Glucose 72 (65-100) mg/dL Calcium 7.2 L (8.4-10.2) mg/dL AST 20 (5-40) units/L ALT 35 (7-56) units/L Alkaline Phosphatase 40 (35-129) units/L Total Protein 4.0 L (6.3-8.2) g/dL Albumin 2.3 L (3.9-5) g/dL Assessment and Plan Chest pain, atypical normal coronaries on LHC 05/2016 at [facility] EF 60% on echo 05/2016 at [facility] no evidence of PE on CTA Anemia HTN Hx of Acute Lymphocytic Leukemia per pt
[2016-09-09 17:48] LABS: Hematocrit 27.4 % (30.3-42.9); Hemoglobin 8.8 gm/dl (10.1-14.3)
[2016-09-09] MEDS: PEPCID PO SCH (21:32)
[2016-09-09] MEDS: LOVENOX SUB-Q SCH (21:32)
--- NOTE | 2016-09-09 23:38 | Consultation ---
History of Present Illness - Reason for Consult Consult date: 09/09/16 - History of Present Illness Patient seen/examined, labs reviewed, case d/w patient. Past History Past Medical History: anemia Past Surgical History: Other (Port) Social history: no significant social history, full code. denies: smoking, alcohol abuse, prescription drug abuse Family history: hypertension Medications and Allergies Allergies Allergy/AdvReac Type Severity Reaction Status Date / Time meperidine HCl [From Demerol] Allergy Shortness Verified 09/07/16 15:41 of Breath metoclopramide HCl Allergy Shortness Verified 09/07/16 15:41 [From Reglan] of Breath metronidazole [From Flagyl] Allergy Hives Verified 09/07/16 15:41 morphine Allergy Shortness Verified 09/07/16 15:41 of Breath Home Medications Medication Instructions Recorded Confirmed Last Taken Type No Known Home Medications [No 09/09/16 09/09/16 Unknown History Reported Home Medications] Active Meds: Active Medications Acetaminophen (Tylenol) 650 mg PO Q4H PRN PRN Reason: Pain MILD(1-3)/Fever >100.5/PACE Bisacodyl (Dulcolax) 10 mg [place] QDAY PRN PRN Reason: Constipation unrelieved by MOM Clopidogrel Bisulfate (Plavix) 75 mg PO QDAY [facility] Last Admin: 09/09/16 10:35 Dose: 75 mg Diphenhydramine HCl (Benadryl) 25 mg IV Q6H PRN PRN Reason: Itching Last Admin: 09/09/16 20:21 Dose: 25 mg Enoxaparin Sodium (Lovenox) 40 mg SUB-Q QDAY@2200 [facility] Last Admin: 09/09/16 21:32 Dose: 40 mg Famotidine (Pepcid) 20 mg PO BID [facility] Last Admin: 09/09/16 21:32 Dose: 20 mg Furosemide (Lasix) 20 mg IV 0600,1800 [facility] Last Admin: 09/09/16 17:22 Dose: 20 mg Hydromorphone HCl (Dilaudid) 1 mg IV Q3H PRN PRN Reason: Pain , Severe (7-10) Last Admin: 09/09/16 20:22 Dose: 1 mg Magnesium Hydroxide (Milk Of Magnesia) 30 ml PO Q4H PRN PRN Reason: Constipation Metoprolol Tartrate (Lopressor) 25 mg PO BID [facility] Last Admin: 09/09/16 21:32 Dose: 25 mg Ondansetron HCl (Zofran) 4 mg IV Q3H PRN PRN Reason: N/V unrelieved by Reglan Last Admin: 09/08/16 18:13 Dose: 4 mg Potassium Chloride (K-Dur) 40 meq PO QDAY [facility] Stop: 09/12/16 10:01 Last Admin: 09/09/16 10:35 Dose: 40 meq Prednisone (Deltasone) 20 mg PO QDAY [facility] Last Admin: 09/09/16 10:35 Dose: 20 mg Sodium Chloride (Sodium Chloride Flush Syringe 10 Ml) 10 ml IV PRN PRN PRN Reason: LINE FLUSH Review of Systems Constitutional: fatigue, chronic pain Breasts: deferred Exam - Constitutional Vitals: Temp Pulse Resp BP Pulse Ox 98.3 F 101 H 20 179/97 100 09/09/16 20:39 09/09/16 20:39 09/09/16 20:39 09/09/16 20:39 09/09/16 20:39 General appearance: Present: mild distress - EENT Eyes: Present: PERRL ENT: hearing intact, clear oral mucosa - Neck Neck: Present: supple, normal ROM - Respiratory Respiratory effort: normal Respiratory: bilateral: CTA - Cardiovascular Heart Sounds: Present: S1 & S2. Absent: rub, click - Extremities Extremities: pulses symmetrical, No edema Peripheral Pulses: within normal limits - Abdominal General gastrointestinal: Present: soft, non-tender, non-distended, normal bowel sounds Female genitourinary: Present: deferred - Rectal Rectal Exam: deferred - Integumentary Integumentary: Present: clear, warm, dry - Musculoskeletal Musculoskeletal: gait normal, strength equal bilaterally - Psychiatric Psychiatric: appropriate mood/affect, intact judgment & insight - Neurologic Neurologic: CNII-XII intact, moves all extremities Results - Labs CBC & Chem 7: 09/09/16 17:00 09/09/16 05:20 Labs: Abnormal lab results 09/09/16 09/09/16 09/09/16 Range/Units 05:20 05:20 17:00 WBC 3.3 L (4.5-11.0) K/mm3 RBC 3.26 L (3.65-5.03) M/mm3 Hgb 8.2 L 8.8 L (10.1-14.3) gm/dl Hct 24.9 L D 27.4 L (30.3-42.9) % MCV 77 L D (79-97) fl MCH 25 L (28-32) pg RDW 17.2 H (13.2-15.2) % Monocytes % (Manual) 8.0 H (0.0-7.3) % Potassium 3.3 L (3.6-5.0) mmol/L Creatinine 0.6 L (0.7-1.2) mg/dL Calcium 7.2 L (8.4-10.2) mg/dL Total Protein 4.0 L (6.3-8.2) g/dL Albumin 2.3 L (3.9-5) g/dL Assessment and Plan - Patient Problems (1) Chest pain Current Visit: Yes Status: Acute Qualifiers: Chest pain type: unspecified Ischemic chest pain type: I Qualified Code(s ): R07.9 - Chest pain, unspecified Plan to address problem: follow cardiology (2) Lupus Current Visit: Yes Status: Acute Qualifiers: Systemic lupus erythematosus type: unspecified Systemic lupus erythematosus organ involvement: unspecified Qualified Code(s): M32.9 - Systemic lupus erythematosus, unspecified Plan to address problem: will do a panel to see if any evidence.
[2016-09-10] MEDS: DILAUDID IV PRN ×2 (04:44→09:28)
[2016-09-10] MEDS: BENADRYL IV PRN (04:45)
[2016-09-10] MEDS: LASIX IV SCH (05:00)
[2016-09-10 05:17] LABS: Hematocrit 26.9 % (30.3-42.9); Hemoglobin 9.1 gm/dl (10.1-14.3); Mean Corpuscular HGB Conc 34 % (30-34); Mean Corpuscular Hemoglobin 26 pg (28-32); Mean Corpuscular Volume 78 fl (79-97); Platelet Count 222 K/mm3 (140-440); Red Blood Count 3.45 M/mm3 (3.65-5.03); Red Cell Distribution Width 17.7 % (13.2-15.2); White Blood Count 4.4 K/mm3 (4.5-11.0)
[2016-09-10 05:34] LABS: Anion Gap 19 mmol/L; BUN/Creatinine Ratio 15.71; Blood Urea Nitrogen 11 mg/dL (7-17); Calcium 7.7 mg/dL (8.4-10.2); Carbon Dioxide 25 mmol/L (22-30); Chloride 101.5 mmol/L (98-107); Glucose 79 mg/dL (65-100); Potassium 3.5 mmol/L (3.6-5.0); Sodium 142 mmol/L (137-145)
[2016-09-10] MEDS ORDERED: XARELTO PO SCH ×2 (08:00→10:00)
--- NOTE | 2016-09-10 09:20 | Vascular Lab Report ---
UPPER EXTREMITY VENOUS DUPLEX: REASON FOR EXAM: Pain of the upper extremities COMMENTS ON THE RIGHT: All arm veins visualized are freely compressible without evidence of internal echogenicity. The subclavian and internal jugular veins are free of thrombus. Flow is spontaneous and phasic throughout. COMMENTS ON THE LEFT: Deep thrombus is noted in the left axillary and subclavian veins. The remaining veins visualized are freely compressible without evidence of internal echogenicity. Spontaneous and phasic flow is patent proximally. IMPRESSION: Deep venous thrombosis in the left upper extremity
[2016-09-10] MEDS: DELTASONE PO SCH (09:25)
[2016-09-10] MEDS: PEPCID PO SCH (09:26)
[2016-09-10] MEDS: K-DUR PO SCH (09:26)
[2016-09-10] MEDS: LOPRESSOR PO SCH (09:26)
--- NOTE | 2016-09-10 09:39 | Discharge Summary ---
Providers - Providers Date of Admission: 09/07/16 23:38 Date of discharge: 09/10/16 Attending physician: TERESA RIGGINS MD 09/08/16 Consult to Cardiac Rehabilitation [CONS] Routine Reason For Exam: Phase I 09/08/16 05:05 Consult to Physician [CONS] Routine Consulting Provider: MARYAM CLINTON Reason For Exam: ALL Place consult to:: eduardo Notified:: a service Phone number called:: [phone] Was contact made?: Yes If yes, spoke with:: elmira Time called:: 11:16 09/08/16 17:07 Consult to Physician [CONS] Routine Consulting Provider: BRIDGET ARAIZA Reason For Exam: Chest pain, recent [place] and stent [address] consult to:: [facility] Notified:: a service Phone number called:: [phone] Was contact made?: Yes If yes, spoke with:: stuart Time called:: 17:55 Primary care physician: [employer] Hospitalization Reason for admission: LOWER EXT EDEMA Condition: Stable Hospital course: Patient is [id number] Afro-[place] female presents to the emergency department with complaint of generalized chest pain, shortness of breath and lower extremity swelling for the past few days. The patient was recently at [facility] for similar symptoms and had a cardiac stent placed at that time. All distal 1 rooming house keeper saw the patient daily to found out that this was true,. When confronted the patient could not give a good reason why she decided to make this information off. She reported a history of recently diagnosed leukemia for which she has not yet started any type of chemotherapy or radiation treatment. Again the graphotype operator oncologist when she follows for her pain medication was unable to verify this. She also has a history of lupus and hypertension. She has a chronic narcotic dependence. She states that she lives with her mother. Denies family social issues. She has been unable to get any of her medications. She reports that she follows with her graphotype operator oncologist will also doubles as a PCP but when I spoke to him he states that he has no significant heart in a long time. After leaving [facility] she was supposed to be started on some medicine but the insurance would not cover it and therefore she has not been taking any chemo but very poor historian.. She does appear to have a previous history of CVA and pulmonary embolism as well. Her primary care physician /oncologist is Dr. Clinton . She does not have a rooming house keeper. She was seen by cardiology as recorded above. CT chest was done and was negative. No further cardiac intervention was recommended at this time. Her home medications were renewed except the pain medications which I have informed her to follow with the primary care physician. She was quite upset that we did not further evaluate bilateral lower extremities swelling. She does have generalized tenderness. Ultrasound of the upper extremities were positive for left upper extremity DVT she is being switched to Coumadin which if she does have a lower extremity DVT bilaterally which I doubt still covers her acutely. The patient is very noncompliant and discussed the importance of being compliant with this medication and she claims that she will be. I also recommended that if she can get back on Xarelto that I would be most preferred. We did educate her on warfarin management, risk with anticoagulants were discussed in detail. He verbalized understanding Discharge Diagnosis * Atypical chest pain likely costochondritis * Left upper extremity DVT * Leukemia * HTN * chronic anemia * b/l lower ext edema * Chronic dialstolic CHF * Non complaince * Acute on Chronic Anemia * Lupus Disposition: - TO HOME OR SELFCARE Time spent for discharge: 35 MINS Core Measure Documentation - Palliative Care Palliative Care/ Comfort Measures: Not Applicable - Core Measures Any of the following diagnoses?: DVT/PE - VTE Discharge Requirements Deep Vein Thrombosis/Pulmonary Embolism Present on Admission: Yes Has pt received <5 days of overlap therapy or INR<2.0: Yes (criteria for overlap therapy at discharge: on overlap therapy for less than 5 days or INR<2.0 ) Anticoagulant overlap therapy prescribed at discharge: Yes Exam - Physical Exam Narrative exam: VITAL SIGNS: Reviewed. GENERAL: The patient appeared well nourished and normally developed. Vital signs as documented. HEAD: No signs of head trauma. EYES: Pupils are equal. Extraocular motions intact. EARS: Hearing grossly intact. MOUTH: Oropharynx is normal. NECK: No adenopathy, no JVD. CHEST: Chest with clear breath sounds bilaterally. No wheezes, rales, or rhonchi. Right chest port CARDIAC: Regular rate and rhythm. S1 and S2, without murmurs, gallops, or rubs. VASCULAR: 1+ NON PITTING Edema. Peripheral pulses normal and equal in all extremities. ABDOMEN: Soft, without detectable tenderness. No sign of distention. No rebound or guarding, and no masses palpated. Bowel Sounds normal. MUSCULOSKELETAL: Good range of motion of all major joints. Extremities without clubbing, cyanosis. 1+Non pitting edema, BL lower ext. NEUROLOGIC EXAM: Alert and oriented x 3. No focal sensory or strength deficits. Speech normal. Follows commands. PSYCHIATRIC: Mood normal. SKIN: No rash or lesions. - Constitutional Vitals: Temp Pulse Resp BP Pulse Ox 97.5 F L 102 H 20 84/66 99 09/10/16 07:45 09/10/16 07:45 09/10/16 07:45 09/10/16 07:45 09/10/16 07:45 Plan Activity: advance as tolerated, fall precautions Diet: low cholesterol, low salt Special Instructions: record daily BP diary Additional Instructions: INR CHECK AT ENVIRONMENTAL SERVICES TECHNICIAN OFFICE IN 3 DAYS. Follow up with: PRIMARY CARE, [Primary Care Provider] - 3-5 Days MARYAM CLINTON DO [Staff Physician] - 7 Days Forms: Warfarin Discharge Instruction Prescriptions: Prazosin [Minipress] 2 mg PO QHS #30 cap ALPRAZolam [Xanax TAB] 2 mg PO BID PRN #20 tablet PRN Reason: Anxiety Duloxetine HCl [DULoxetine] 60 mg PO DAILY #30 capsule. Famotidine [Pepcid] 20 mg PO BID #60 tablet Hydroxychloroquine [Plaquenil] 200 mg PO QDAY #30 tablet Potassium Chloride [K-Dur] 20 meq PO QDAY #30 tablet predniSONE [Deltasone] 20 mg PO QDAY #30 tablet Sennosides/Docusate Sodium [Senna-Docusate Sodium Tablet] 1 each PO DAILY #30 tablet Warfarin [Coumadin] 5 mg PO QDAY #30 tablet
[2016-09-10] MEDS ORDERED: COUMADIN PO ONE (11:00)
--- NOTE | 2016-09-10 11:04 | Progress Note ---
Assessment and Plan Chest pain, atypical normal coronaries on LHC 05/2016 at [facility] EF 60% on echo 05/2016 at [facility] no evidence of PE by CTA this admission Acute LUE DVT initiated on xarelto for anticoagulation Chronic Anemia HTN Hx of Acute Lymphocytic Leukemia per pt Plan: Conservative cardiac management. Subjective Date of service: 09/10/16 Interval history: Patient has no chest pain or shortness of breath. Objective Vital Signs Temp Pulse Pulse Resp Resp BP Pulse Ox 09/10/16 10:00 91 H 18 20 98 09/10/16 09:00 91 H 09/10/16 07:45 97.5 F L 102 H 20 84/66 99 09/10/16 04:15 97.7 F 92 H 18 107/73 100 09/10/16 01:00 103 H 09/10/16 00:15 98.2 F 98 H 20 108/74 100 09/09/16 20:39 98.3 F 101 H 20 179/97 100 09/09/16 17:16 20 09/09/16 17:00 110 H 09/09/16 16:30 98.6 F 91 H 18 105/71 100 - Physical Examination General: No Apparent Distress HEENT: Positive: PERRL Neck: Positive: trachea midline Cardiac: Positive: Reg Rate and Rhythm Lungs: Positive: Decreased Breath Sounds Neuro: Positive: Grossly Intact - Labs and Meds CBC 09/09/16 09/10/16 Range/Units 17:00 05:02 WBC 4.4 L (4.5-11.0) K/mm3 RBC 3.45 L (3.65-5.03) M/mm3 Hgb 8.8 L 9.1 L (10.1-14.3) gm/dl Hct 27.4 L 26.9 L (30.3-42.9) % Plt Count 222 (140-440) K/mm3 Comprehensive Metabolic Panel 09/10/16 Range/Units 05:02 Sodium 142 (137-145) mmol/L Potassium 3.5 L (3.6-5.0) mmol/L Chloride 101.5 (98-107) mmol/L Carbon Dioxide 25 (22-30) mmol/L BUN 11 (7-17) mg/dL Creatinine 0.7 (0.7-1.2) mg/dL Glucose 79 (65-100) mg/dL Calcium 7.7 L (8.4-10.2) mg/dL - Imaging and Cardiology EKG: report reviewed (sinus tachycardia heart rate of 120. Nonspecific ST-T wave changes.)
--- NOTE | 2016-09-10 12:19 | Query- Chest Pain ---
Deacarlos Kwok____Valorie Date:___09/10/16 Mechanical Planner/CDS:____Lenin Rachel Phone#: [phone] Exercise your independent professional judgment when responding to query. Questions asked do not imply a particular answer is desired or expected. We greatly appreciate your clarification on this issue. Clinical Documentation States: 40 year old female was admitted on 09/07/16. The progress note (09/09/16) states " Assessment and plan: Chest pain and shortness of breath. Etiology unclear. Cardiac enzymes normal. CT chest negative for PE. Patient states she had a recent myocardial infarction and stent placed at [place] 1 week ago. However cardiology reviewed records from [place] and [facility] this is untrue-she had normal cath, no stent. Leukemia. Managed by Dr. Garza Hypertension. BP stable Acute on chronic CHF. continue Metoprol Acute DVT left upper ext. Will start Xarelto. She was on Xarelto for DVT but stopped taking meds Full code status " Please document the etiology of Chest Pain: [ ] Myocardial Infarction [ ] Pneumonia [ ] Mediastinitis [ Y] Costochondritis [ ] Pulmonary Embolism [ ] Coronary Artery Disease [ ] GERD [ ] Other: [ ] Comment/Explanation: Present on Admission: [Y ] Yes (Y) [ ] Clinically undeterminable (W) [ ] No(N) Please document response in your Progress Notes and/or Discharge Summary and indicate if the condition was present on admission. MTDD
[2016-09-10] MEDS ORDERED: FLUSH HEPARIN IV ONE ×2 (12:29→15:00)
[2016-09-10 12:38] VITALS: BP 91/60
[2016-09-10 22:13] LABS: PTT-LA 43 sec (<=40)
[2016-09-11] MEDS ORDERED: COUMADIN PO SCH (17:00)
[2016-09-13 13:53] LABS: CYTOMETRY FIRST MARKER SCANNED INTO MED REC; FLOW CYTOMETRY >16 SCANNED INTO MED REC
== END 2016-09-10 15:00 | disposition home or self-care (01) | DRG 206 ==
LOC: ED 15:28 → 4A 23:38
PROVIDERS: ADMIT Internal Medicine; ATTEND Internal Medicine
DX: M94.0 Chondrocostal junction syndrome [Tietze] (principal); I24.9 Acute ischemic heart disease, unspecified; M32.9 Systemic lupus erythematosus, unspecified; C91.00 Acute lymphoblastic leukemia not having achieved remission; I11.0 Hypertensive heart disease with heart failure; I82.622 Acute embolism and thrombosis of deep veins of left upper extremity; D64.9 Anemia, unspecified; I50.32 Chronic diastolic (congestive) heart failure; F11.20 Opioid dependence, uncomplicated; Z86.73 Personal history of transient ischemic attack (TIA), and cerebral infarction without residual deficits; Z91.19 Patient's noncompliance with other medical treatment and regimen; Z86.711 Personal history of pulmonary embolism; Z88.8 Allergy status to other drugs, medicaments and biological substances; Z88.6 Allergy status to analgesic agent; Z82.49 Family history of ischemic heart disease and other diseases of the circulatory system; Z86.19 Personal history of other infectious and parasitic diseases
CPT/HCPCS: 36415; 71010; 71275; 78452; 80048; 80053; 82550; 82553; 83880; 84484; 84702; 85007; 85014; 85018; 85025; 85027; 85379; 85610; 85613; 85652; 85730; 86038; 86225; 88184; 88185; 93005; 93010; 93017; 93970; 96372; 96374; 96375; A9502; J1170; J1200; J1642; J1644; J1650; J1940; J2405; J2785; J3010; J7040; J7512; Q9967

== ENCOUNTER 2016-09-12 13:53 | Emergency (ER) | payer MEDICAID ==
[2016-09-12 14:14] VITALS: BP 102/76
--- NOTE | 2016-09-13 14:43 | Vascular Lab Report ---
LOWER EXTREMITY VENOUS DUPLEX: REASON FOR EXAM: Pain of the lower extremities. COMMENTS ON THE RIGHT: All veins visualized are freely compressible without evidence of internal echogenicity. Flow is spontaneous and phasic throughout. COMMENTS ON THE LEFT: All veins visualized are freely compressible without evidence of internal echogenicity. Flow is spontaneous and phasic throughout. IMPRESSION: No evidence of acute or chronic deep venous thrombosis in either lower extremity.
--- NOTE | 2016-09-18 22:12 | ED Elopement Review ---
ED Pt Elopement review - Call Back decision Pt Call Back Decision: No action required
== END 2016-09-12 18:35 | disposition left against medical advice (07) ==
LOC: ED 13:53
DX: M79.89 Other specified soft tissue disorders (principal); Z53.21 Procedure and treatment not carried out due to patient leaving prior to being seen by health care provider
CPT/HCPCS: 93970

== ENCOUNTER 2016-11-19 03:00 | Emergency (ER) | payer MEDICAID ==
[2016-11-19] MEDS ORDERED: NACL 0.9% 1000 ML 1,000 ML IV ONE (04:13)
[2016-11-19] MEDS ORDERED: D50W (25GM) Syringe IV ONE (04:14)
--- NOTE | 2016-11-19 04:19 | Emergency Department Report ---
ED Dizziness HPI - General Chief Complaint: Dizziness Stated Complaint: ALTERED MENTAL STATUS, HEAD PAIN Time Seen by Provider: 11/19/16 04:05 Source: patient, EMS Mode of arrival: Stretcher Limitations: No Limitations - History of Present Illness Initial Comments: 41 years old female history of lupus and recent diagnosis of leukemia she is supposed to start chemotherapy today. She stated that she was driving when she all of a sudden she became dizzy and almost passed out she pulled over [facility]. EMS personnel found patient blood pressure to be 80/50 and her blood sugar is 58 patient refused fluids and glucose. Patient also mentioned to me that she fell yesterday and hit her head. Denied any fever nausea or vomiting no diarrhea. MD Complaint: dizziness, near syncope - Related Data Previous Rx's Medication Instructions Recorded Last Taken Type ALPRAZolam [Xanax TAB] 2 mg PO BID PRN #20 tablet 09/10/16 Unknown Rx Duloxetine HCl [DULoxetine] 60 mg PO DAILY #30 capsule. 09/10/16 Unknown Rx Famotidine [Pepcid] 20 mg PO BID #60 tablet 09/10/16 Unknown Rx Hydroxychloroquine [Plaquenil] 200 mg PO QDAY #30 tablet 09/10/16 Unknown Rx Potassium Chloride [K-Dur] 20 meq PO QDAY #30 tablet 09/10/16 Unknown Rx Prazosin [Minipress] 2 mg PO QHS #30 cap 09/10/16 Unknown Rx Sennosides/Docusate Sodium 1 each PO DAILY #30 tablet 09/10/16 Unknown Rx [Senna-Docusate Sodium Tablet] Warfarin [Coumadin] 5 mg PO QDAY #30 tablet 09/10/16 Unknown Rx predniSONE [Deltasone] 20 mg PO QDAY #30 tablet 09/10/16 Unknown Rx Naproxen [Naprosyn] 500 mg PO BID #14 tablet 11/19/16 Unknown Rx Allergies Allergy/AdvReac Type Severity Reaction Status Date / Time meperidine HCl [From Demerol] Allergy Shortness Verified 09/07/16 15:41 of Breath metoclopramide HCl Allergy Shortness Verified 09/07/16 15:41 [From Reglan] of Breath metronidazole [From Flagyl] Allergy Hives Verified 09/07/16 15:41 morphine Allergy Shortness Verified 09/07/16 15:41 of Breath ED Review of Systems ROS: Stated complaint: ALTERED MENTAL STATUS, HEAD PAIN Other details as noted in HPI Comment: All other systems reviewed and negative Constitutional: denies: chills, fever Respiratory: denies: cough, shortness of breath Cardiovascular: denies: chest pain Endocrine: denies: excessive sweating Gastrointestinal: denies: abdominal pain, nausea, vomiting, diarrhea, constipation, hematemesis Musculoskeletal: denies: back pain, joint swelling Skin: denies: lesions, change in hair/nails Neurological: denies: headache, weakness, numbness, paresthesias, confusion ED Past Medical Hx - Past Medical History Previous Medical History?: Yes Hx Hypertension: Yes Hx CVA: Yes Hx Congestive Heart Failure: Yes Hx Seizures: Yes Additional medical history: Lupas, Pulmonary embolus, PTSD, LOW BS, ACUTE LYMPHATIC LEUKEMIA - Surgical History Additional Surgical History: Right chest port - Social History Smoking Status: Never Smoker Substance Use Type: None - Medications Home Medications: Home Medications Medication Instructions Recorded Confirmed Last Taken Type ALPRAZolam [Xanax TAB] 2 mg PO BID PRN #20 tablet 09/10/16 Unknown Rx Duloxetine HCl [DULoxetine] 60 mg PO DAILY #30 capsule. 09/10/16 Unknown Rx Famotidine [Pepcid] 20 mg PO BID #60 tablet 09/10/16 Unknown Rx Hydroxychloroquine [Plaquenil] 200 mg PO QDAY #30 tablet 09/10/16 Unknown Rx Potassium Chloride [K-Dur] 20 meq PO QDAY #30 tablet 09/10/16 Unknown Rx Prazosin [Minipress] 2 mg PO QHS #30 cap 09/10/16 Unknown Rx Sennosides/Docusate Sodium 1 each PO DAILY #30 tablet 09/10/16 Unknown Rx [Senna-Docusate Sodium Tablet] Warfarin [Coumadin] 5 mg PO QDAY #30 tablet 09/10/16 Unknown Rx predniSONE [Deltasone] 20 mg PO QDAY #30 tablet 09/10/16 Unknown Rx Naproxen [Naprosyn] 500 mg PO BID #14 tablet 11/19/16 Unknown Rx ED Physical Exam - General Limitations: No Limitations General appearance: alert, in no apparent distress - Head Head exam: Present: atraumatic - Eye Eye exam: Present: normal appearance, PERRL - ENT ENT exam: Present: normal exam, normal orophraynx - Neck Neck exam: Present: normal inspection. Absent: tenderness, meningismus, full ROM, lymphadenopathy - Respiratory Respiratory exam: Present: normal lung sounds bilaterally. Absent: respiratory distress, wheezes, rales, rhonchi, decreased breath sounds, prolonged expiratory - Cardiovascular Cardiovascular Exam: Present: regular rate, normal rhythm, normal heart sounds - GI/Abdominal GI/Abdominal exam: Present: soft. Absent: distended, tenderness, guarding, rebound, rigid, normal bowel sounds, mass, bruit, pulsatile mass - Extremities Exam Extremities exam: Present: normal inspection, full ROM, normal capillary refill - Back Exam Back exam: Present: normal inspection. Absent: tenderness, CVA tenderness (R), CVA tenderness (L), muscle spasm, paraspinal tenderness - Neurological Exam Neurological exam: Present: alert, oriented X3, CN II-XII intact - Psychiatric Psychiatric exam: Present: normal affect - Skin Skin exam: Present: warm, intact, normal color ED Course Vital Signs 11/19/16 11/19/16 11/19/16 03:14 03:27 03:30 Temperature 97.9 F Pulse Rate 98 H Respiratory 18 Rate Blood Pressure 87/57 87/57 91/65 Blood Pressure 80/50 [Right] O2 Sat by Pulse 98 Oximetry 11/19/16 11/19/16 11/19/16 03:45 04:00 04:33 Temperature Pulse Rate Respiratory Rate Blood Pressure 97/67 89/61 89/59 Blood Pressure [Right] O2 Sat by Pulse Oximetry 11/19/16 11/19/16 11/19/16 04:43 04:45 04:51 Temperature Pulse Rate Respiratory 18 Rate Blood Pressure 90/59 90/59 Blood Pressure [Right] O2 Sat by Pulse 100 Oximetry - Reevaluation(s) Reevaluation #1: 11/19/16 06:17 I reviewed patient previous record was a strong indication of pain medicine seeking behavior patient has been asking for Benadryl and pain medicine her blood pressure stabilized I will discharge home to follow up with her primary care physician and I strongly advised to follow-up his pain clinic. ED Medical Decision Making - Lab Data Result diagrams: 11/19/16 04:30 11/19/16 04:30 Critical care attestation.: If time is entered above; I have spent that time in minutes in the direct care of this critically ill patient, excluding procedure time. ED Disposition Clinical Impression: Generalized pain, Head injury Disposition: DC-01 TO HOME OR SELFCARE Is pt being admited?: No Condition: Stable Instructions: Chronic Pain (ED) Referrals: PRIMARY CARE, [Primary Care Provider] - 3-5 Days
[2016-11-19] MEDS ORDERED: ZOFRAN ONE (04:20)
[2016-11-19 05:01] LABS: Basophils % (Auto) 0.9 % (0.0-1.8); Hematocrit 26.6 % (30.3-42.9); Hemoglobin 8.4 gm/dl (10.1-14.3); Mean Corpuscular HGB Conc 32 % (30-34); Mean Corpuscular Hemoglobin 27 pg (28-32); Mean Corpuscular Volume 86 fl (79-97); Platelet Count 406 K/mm3 (140-440); Red Cell Distribution Width 15.6 % (13.2-15.2); White Blood Count 4.1 K/mm3 (4.5-11.0)
[2016-11-19 05:14] LABS: Anion Gap 17 mmol/L; BUN/Creatinine Ratio 21.42; Blood Urea Nitrogen 15 mg/dL (7-17); Calcium 7.7 mg/dL (8.4-10.2); Carbon Dioxide 19 mmol/L (22-30); Chloride 109.6 mmol/L (98-107); Glucose 69 mg/dL (65-100); Sodium 142 mmol/L (137-145)
--- NOTE | 2016-11-19 06:01 | Cat Scan Report ---
FINAL REPORT PROCEDURE: CT HEAD/BRAIN WO CON TECHNIQUE: Computerized tomography of the head was performed without contrast material. HISTORY: head injury COMPARISON: No prior studies are available for comparison. FINDINGS: Skull and scalp: Normal. Paranasal sinuses: Normal. Ventricles and subarachnoid spaces: There is mild central and cortical atrophy. There is no hydrocephalus or asymmetry.. Cerebrum: No evidence of hemorrhage, acute infarction or mass . Cerebellum and brainstem: No evidence of hemorrhage, acute infarction or mass. Vasculature: Normal. Comments: None. IMPRESSION: There is no skull fracture. There is no intracranial hemorrhage.
[2016-11-19 06:08] VITALS: BP 90/59
[2016-11-19] MEDS ORDERED: ZOFRAN IV ONE (06:11)
[2016-11-19] MEDS ORDERED: FLUSH HEPARIN IV ONE ×2 (06:19→06:21)
== END 2016-11-19 06:59 | disposition home or self-care (01) ==
LOC: ED 03:00
DX: S09.90XA Unspecified injury of head, initial encounter (principal); R42 Dizziness and giddiness; I10 Essential (primary) hypertension; Z86.73 Personal history of transient ischemic attack (TIA), and cerebral infarction without residual deficits; I50.9 Heart failure, unspecified; R56.9 Unspecified convulsions; F43.10 Post-traumatic stress disorder, unspecified; Z88.5 Allergy status to narcotic agent; Z88.8 Allergy status to other drugs, medicaments and biological substances
CPT/HCPCS: 36415; 70450; 80048; 82962; 85025; 96361; 96374; 96375; 99284; J1642; J2405; J7030

== ENCOUNTER 2016-12-16 17:48 | Emergency (ER) | payer MEDICAID ==
[2016-12-16 18:14] VITALS: BP 103/73
[2016-12-16 18:48] LABS: Basophils % (Auto) 0.2 % (0.0-1.8); Eosinophils % (Auto) 0.5 % (0.0-4.3); Mean Corpuscular HGB Conc 30 % (30-34); Mean Corpuscular Hemoglobin 27 pg (28-32); Mean Corpuscular Volume 91 fl (79-97); Platelet Count 274 K/mm3 (140-440); Red Blood Count 3.26 M/mm3 (3.65-5.03); Red Cell Distribution Width 17.6 % (13.2-15.2); White Blood Count 6.5 K/mm3 (4.5-11.0)
[2016-12-16 18:58] LABS: Hematocrit 29.6 % (30.3-42.9); Hemoglobin 8.8 gm/dl (10.1-14.3)
[2016-12-16 19:17] LABS: Anion Gap 18 mmol/L; Blood Urea Nitrogen 15 mg/dL (7-17); Calcium 7.6 mg/dL (8.4-10.2); Carbon Dioxide 19 mmol/L (22-30); Chloride 104.9 mmol/L (98-107); Glucose 56 mg/dL (65-100); Potassium 4.2 mmol/L (3.6-5.0); Sodium 138 mmol/L (137-145)
[2016-12-16 19:19] LABS: Creatine Kinase 62 units/L (30-135); Creatine Kinase MB < 1.0 ng/mL (0.0-4.0)
== END 2016-12-16 21:00 | disposition left against medical advice (07) ==
LOC: ED 17:48
DX: R06.09 Other forms of dyspnea (principal); Z53.21 Procedure and treatment not carried out due to patient leaving prior to being seen by health care provider
CPT/HCPCS: 36415; 80048; 82550; 82553; 84484; 85025; 93005; 93010

== ENCOUNTER 2017-12-22 19:57 | Emergency (ER) | payer MEDICAID ==
[2017-12-22 20:15] VITALS: BP 119/83
[2017-12-23] MEDS ORDERED: PERCOCET 5/325 PO ONE (00:26)
[2017-12-23] MEDS ORDERED: PHENERGAN PO ONE (00:26)
--- NOTE | 2017-12-23 00:32 | Emergency Department Report ---
HPI - General Chief Complaint: Wound/Laceration Time Seen by Provider: 12/22/17 23:33 - HPI HPI: Room 17 The patient is a 42-year-old female presenting with chief complaint of abdominal pain. The patient was admitted to the hospital by myself for chest pain yesterday. Yesterday the patient underwent a CT scan of the chest abdomen and pelvis that she also complained of abdominal pain. CT scan of the abdomen and pelvis did not reveal any acute abnormalities. The patient was discharged today but returns stating she still has pain whenever she does tube feed. The patient admits to some nausea and vomiting with meals. The patient gives her pain a score of 7-8/10 Location: [See above] Duration: [See above] Quality: Pain Severity: 8/10 Modifying factors: [see above] Context: [see above] Mode of transportation: [not driving] ED Past Medical Hx - Past Medical History Hx Hypertension: Yes Hx CVA: Yes Hx Heart Attack/AMI: Yes Hx Congestive Heart Failure: Yes Hx Pulmonary Embolism: Yes Hx Seizures: Yes Hx Psychiatric Treatment: Yes (Bipolar, PTSD, Anxiety, Depression) Additional medical history: Lupus, Pulmonary embolus, PTSD, LOW BS, ACUTE LYMPHATIC LEUKEMIA, Hep C - Surgical History Additional Surgical History: Right chest port - Family History Family history: no significant - Social History Smoking Status: Never Smoker Substance Use Type: None - Medications Home Medications: Home Medications Medication Instructions Recorded Confirmed Last Taken Type ALPRAZolam [Xanax TAB] 2 mg PO BID PRN #20 tablet 09/10/16 12/22/17 Unknown Rx Duloxetine HCl [DULoxetine] 60 mg PO DAILY #30 capsule. 09/10/16 12/22/17 Unknown Rx Hydroxychloroquine [Plaquenil] 200 mg PO QDAY #30 tablet 09/10/16 12/22/17 Unknown Rx Sennosides/Docusate Sodium 1 each PO DAILY #30 tablet 09/10/16 12/22/17 Unknown Rx [Senna-Docusate Sodium Tablet] predniSONE [Deltasone] 20 mg PO QDAY #30 tablet 09/10/16 12/22/17 Unknown Rx Cyclobenzaprine [Flexeril 10 MG 10 mg PO BID 12/22/17 12/22/17 Unknown History TAB] Docusate Sodium [Colace CAP] 100 mg PO BID PRN 12/22/17 12/22/17 Unknown History Gabapentin [Neurontin] 300 mg PO Q8HR 12/22/17 12/22/17 Unknown History Midodrine HCl 10 mg PO TID 12/22/17 12/22/17 Unknown History Morphine [Morphine TAB] 4 mg PO Q4H 12/22/17 12/22/17 Unknown History Multivitamin [Multiple Vitamins] 1 each PO QDAY 12/22/17 12/22/17 Unknown History Oxycodone HCl [Oxycontin] 10 mg PO Q6H 12/22/17 12/22/17 Unknown History Pantoprazole [Protonix TAB] 40 mg PO QDAY #30 tablet 12/22/17 Unknown Rx QUEtiapine [SEROquel] 200 mg PO BID 12/22/17 12/22/17 Unknown History Rivaroxaban [Xarelto] 20 mg PO QHS 12/22/17 12/22/17 Unknown History Sulfamethoxazole/Trimethoprim 1 each PO BID #14 tablet 12/22/17 Unknown Rx [Bactrim Ds Tablet] Temazepam 30 mg PO QHS 12/22/17 12/22/17 Unknown History Zinc 50 mg PO BID 12/22/17 12/22/17 Unknown History diphenhydrAMINE [Benadryl CAP] 50 mg PO Q6H 12/22/17 12/22/17 Unknown History Ondansetron [Zofran ODT TAB] 8 mg PO Q8HR #20 tab.rapdis 12/23/17 Unknown Rx Promethazine [Phenergan] [address] Q6HR PRN #20 supp.rect 12/23/17 Unknown Rx oxyCODONE [Roxicodone TAB] 5 mg PO Q6HR PRN #14 tablet 12/23/17 Unknown Rx ED Review of Systems ROS: Stated complaint: POST SURGICAL INFECTION/PAIN Other details as noted in HPI Constitutional: no symptoms reported Eyes: denies: eye pain ENT: denies: throat pain Respiratory: no symptoms reported Cardiovascular: denies: chest pain Endocrine: no symptoms reported Gastrointestinal: abdominal pain, nausea, vomiting Genitourinary: denies: dysuria Musculoskeletal: denies: back pain Neurological: denies: headache Physical Exam - Physical Exam Vital Signs: Vital Signs 12/22/17 12/22/17 20:12 20:17 Temperature 99.0 F 99 F Pulse Rate 105 H 104 H Respiratory 18 18 Rate Blood Pressure 119/83 119/83 O2 Sat by Pulse 98 96 Oximetry Physical Exam: GENERAL: The patient is well-developed well-nourished female lying on stretcher sleeping. Be in acute distress. [] HEENT: Normocephalic. Atraumatic. Extraocular motions are intact. Patient has moist mucous membranes. NECK: Supple. Trachea midline CHEST/LUNGS: Clear to auscultation. There is no respiratory distress noted. HEART/CARDIOVASCULAR: Regular. There is no tachycardia. There is no gallop rub or murmur. ABDOMEN: Abdomen is soft, surgical site appears clean and intact. No active discharge visualized. No surrounding erythema visualized. There is evidence of scant amount of yellow discharge present on the dressing. Patient has normal bowel sounds. There is no abdominal distention. SKIN: There is no rash. There is no edema. There is no diaphoresis. NEURO: The patient is awake, alert, and oriented. The patient is cooperative. The patient has normal speech MUSCULOSKELETAL: There is no evidence of acute injury. ED Course Vital Signs 12/22/17 12/22/17 20:12 20:17 Temperature 99.0 F 99 F Pulse Rate 105 H 104 H Respiratory 18 18 Rate Blood Pressure 119/83 119/83 O2 Sat by Pulse 98 96 Oximetry ED Medical Decision Making - Lab Data Result diagrams: 12/23/17 00:45 12/23/17 00:45 Laboratory Tests 12/23/17 12/23/17 00:45 00:45 WBC 9.7 RBC 3.18 L Hgb 8.7 L Hct 27.4 L MCV 86 MCH 27 L MCHC 32 RDW 16.5 H Plt Count 363 Lymph % (Auto) 9.1 L [place] % (Auto) 6.5 Eos % (Auto) 1.5 Baso % (Auto) 0.2 Lymph # 0.9 L [place] # 0.6 Eos # 0.1 Baso # 0.0 Seg Neutrophils % 82.7 H Seg Neutrophils # 8.0 H Sodium 138 Potassium 4.0 Chloride 101.0 Carbon Dioxide 25 Anion Gap 16 BUN 7 Creatinine 0.7 Estimated GFR > 60 BUN/Creatinine Ratio 10 Glucose 63 L Calcium 8.2 L Lipase 28 - Differential Diagnosis wound infection, chronic pain syndrome, secondary gain Critical care attestation.: If time is entered above; I have spent that time in minutes in the direct care of this critically ill patient, excluding procedure time. ED Disposition Clinical Impression: Chronic pain syndrome Disposition: DC-01 TO HOME OR SELFCARE Is pt being admited?: No Does the pt Need Aspirin: No Condition: Stable Instructions: Chronic Pain (ED) Additional Instructions: Return to the emergency department immediately should you develop worsening symptoms, fever, inability to tolerate food or liquid or any other concerns. Prescriptions: Ondansetron [Zofran ODT TAB] 8 mg PO Q8HR #20 tab.rapdis oxyCODONE [Roxicodone TAB] 5 mg PO Q6HR PRN #14 tablet PRN Reason: Pain Promethazine [Phenergan] [address] Q6HR PRN #20 supp.rect PRN Reason: Vomiting Referrals: [facility] [Provider Group] - 3-5 Days [facility] [Outside] - 3-5 Days JERED MOTA MD [Staff Physician] - 3-5 Days (Dr. Mota is a flattening press operator. Please follow-up with him for further evaluation) NATACHA DURAN MD [Staff Physician] - 3-5 Days (Dr. Duran is a primary physician. Please follow up with him to be established as a patient) Time of Disposition: 02:02
[2017-12-23] MEDS ORDERED: ROXICODONE PO ONE (00:46)
[2017-12-23 01:16] LABS: Basophils % (Auto) 0.2 % (0.0-1.8); Eosinophils # (Auto) 0.1 K/mm3 (0.0-0.4); Eosinophils % (Auto) 1.5 % (0.0-4.3); Hematocrit 27.4 % (30.3-42.9); Hemoglobin 8.7 gm/dl (10.1-14.3); Lymphocytes # (Auto) 0.9 K/mm3 (1.2-5.4); Lymphocytes % (Auto) 9.1 % (13.4-35.0); Mean Corpuscular HGB Conc 32 % (30-34); Mean Corpuscular Hemoglobin 27 pg (28-32); Mean Corpuscular Volume 86 fl (79-97); Monocytes # (Auto) 0.6 K/mm3 (0.0-0.8); Monocytes % (Auto) 6.5 % (0.0-7.3); Platelet Count 363 K/mm3 (140-440); Red Blood Count 3.18 M/mm3 (3.65-5.03); Red Cell Distribution Width 16.5 % (13.2-15.2)
[2017-12-23 01:35] LABS: BUN/Creatinine Ratio 10; Blood Urea Nitrogen 7 mg/dL (7-17); Calcium 8.2 mg/dL (8.4-10.2); Hemolysis Index 6; Lipase 28 units/L (13-60)
== END 2017-12-23 03:48 | disposition home or self-care (01) ==
LOC: ED 19:57
DX: G89.4 Chronic pain syndrome (principal); I11.0 Hypertensive heart disease with heart failure; F31.9 Bipolar disorder, unspecified; F43.10 Post-traumatic stress disorder, unspecified; F41.9 Anxiety disorder, unspecified; M32.9 Systemic lupus erythematosus, unspecified; Z86.711 Personal history of pulmonary embolism; Z86.19 Personal history of other infectious and parasitic diseases; Z88.1 Allergy status to other antibiotic agents; Z88.8 Allergy status to other drugs, medicaments and biological substances
CPT/HCPCS: 36415; 80048; 83690; 85025; 99283; Q0169

== ENCOUNTER 2017-12-23 22:50 | Observation (INO) | payer MEDICAID ==
[2017-12-23 23:37] LABS: Basophils % (Auto) 0.3 % (0.0-1.8); Eosinophils # (Auto) 0.2 K/mm3 (0.0-0.4); Eosinophils % (Auto) 1.8 % (0.0-4.3); Hematocrit 30.7 % (30.3-42.9); Hemoglobin 9.8 gm/dl (10.1-14.3); Lymphocytes % (Auto) 10.1 % (13.4-35.0); Mean Corpuscular HGB Conc 32 % (30-34); Mean Corpuscular Hemoglobin 28 pg (28-32); Mean Corpuscular Volume 87 fl (79-97); Monocytes # (Auto) 0.8 K/mm3 (0.0-0.8); Platelet Count 396 K/mm3 (140-440); Red Blood Count 3.52 M/mm3 (3.65-5.03); Red Cell Distribution Width 16.5 % (13.2-15.2)
[2017-12-23 23:59] LABS: BUN/Creatinine Ratio 13; Blood Urea Nitrogen 9 mg/dL (7-17); Calcium 8.9 mg/dL (8.4-10.2); Hemolysis Index 27
[2017-12-24 00:11] LABS: INR 0.99 (0.87-1.13)
[2017-12-24 00:12] LABS: Partial Thromboplastin Time 35.8 Sec. (24.2-36.6)
--- NOTE | 2017-12-24 00:30 | Emergency Department Report ---
HPI - General Chief Complaint: Hypoglycemia Time Seen by Provider: 12/23/17 23:15 - HPI HPI: 42-year-old female presents to the emergency department for her third day in a row. The other day the patient was admitted for some chest pain and then discharged after a cardiology consultation. She came back yesterday with complaint of some abdominal pain that occurs when the patient uses her feeding tube. Today the patient says that she has been having labile blood sugars. Per EMS, patient was sitting outside of a gas station. Her initial blood sugar was 80 and then had gone down to about 50 just prior to arrival. She was given some oral glucose with improvement of the blood sugar level. The patient has a past medical history of CHF, CVA, coronary artery disease, hypertension, lupus. She has a psychiatric history of bipolar disorder, PTSD, anxiety and depression. ED Past Medical Hx - Past Medical History Hx Hypertension: Yes Hx CVA: Yes Hx Heart Attack/AMI: Yes Hx Congestive Heart Failure: Yes Hx Diabetes: No Hx Pulmonary Embolism: Yes Hx Seizures: Yes Hx Psychiatric Treatment: Yes (Bipolar, PTSD, Anxiety, Depression) Hx Asthma: No Hx COPD: No Additional medical history: Lupus, Pulmonary embolus, PTSD, LOW BS, ACUTE LYMPHATIC LEUKEMIA, Hep C - Surgical History Additional Surgical History: Right chest port - Social History Smoking Status: Never Smoker - Medications Home Medications: Home Medications Medication Instructions Recorded Confirmed Last Taken Type ALPRAZolam [Xanax TAB] 2 mg PO BID PRN #20 tablet 09/10/16 12/22/17 Unknown Rx Duloxetine HCl [DULoxetine] 60 mg PO DAILY #30 capsule. 09/10/16 12/22/17 Unknown Rx Hydroxychloroquine [Plaquenil] 200 mg PO QDAY #30 tablet 09/10/16 12/22/17 Unknown Rx Sennosides/Docusate Sodium 1 each PO DAILY #30 tablet 09/10/16 12/22/17 Unknown Rx [Senna-Docusate Sodium Tablet] predniSONE [Deltasone] 20 mg PO QDAY #30 tablet 09/10/16 12/22/17 Unknown Rx Cyclobenzaprine [Flexeril 10 MG 10 mg PO BID 12/22/17 12/22/17 Unknown History TAB] Docusate Sodium [Colace CAP] 100 mg PO BID PRN 12/22/17 12/22/17 Unknown History Gabapentin [Neurontin] 300 mg PO Q8HR 12/22/17 12/22/17 Unknown History Midodrine HCl 10 mg PO TID 12/22/17 12/22/17 Unknown History Morphine [Morphine TAB] 4 mg PO Q4H 12/22/17 12/22/17 Unknown History Multivitamin [Multiple Vitamins] 1 each PO QDAY 12/22/17 12/22/17 Unknown History Oxycodone HCl [Oxycontin] 10 mg PO Q6H 12/22/17 12/22/17 Unknown History Pantoprazole [Protonix TAB] 40 mg PO QDAY #30 tablet 12/22/17 Unknown Rx QUEtiapine [SEROquel] 200 mg PO BID 12/22/17 12/22/17 Unknown History Rivaroxaban [Xarelto] 20 mg PO QHS 12/22/17 12/22/17 Unknown History Sulfamethoxazole/Trimethoprim 1 each PO BID #14 tablet 12/22/17 Unknown Rx [Bactrim Ds Tablet] Temazepam 30 mg PO QHS 12/22/17 12/22/17 Unknown History Zinc 50 mg PO BID 12/22/17 12/22/17 Unknown History diphenhydrAMINE [Benadryl CAP] 50 mg PO Q6H 12/22/17 12/22/17 Unknown History Ondansetron [Zofran ODT TAB] 8 mg PO Q8HR #20 tab.rapdis 12/23/17 Unknown Rx Promethazine [Phenergan] 25 mg [place] Q6HR PRN #20 supp.rect 12/23/17 Unknown Rx Sulfamethoxazole/Trimethoprim 1 each PO BID #14 tablet 12/23/17 Unknown Rx [Bactrim DS TAB] Vancomycin HCl 125 mg PO QID #40 capsule 12/23/17 Unknown Rx oxyCODONE [Roxicodone TAB] 5 mg PO Q6HR PRN #14 tablet 12/23/17 Unknown Rx ED Review of Systems ROS: Stated complaint: LOW BLOOD GLUCOSE Other details as noted in HPI Comment: All other systems reviewed and negative Constitutional: denies: chills, fever Eyes: denies: eye pain, eye discharge, vision change ENT: denies: ear pain, throat pain Respiratory: denies: cough, shortness of breath, wheezing Cardiovascular: syncope (near syncope). denies: edema Gastrointestinal: denies: vomiting, diarrhea Genitourinary: denies: dysuria, discharge Musculoskeletal: denies: back pain, arthralgia Skin: denies: rash, lesions Neurological: denies: headache, numbness Physical Exam - Physical Exam Vital Signs: Vital Signs 12/23/17 22:52 Temperature 97.8 F Pulse Rate 109 H Respiratory 14 Rate Blood Pressure 139/96 Physical Exam: GENERAL: The patient is well-developed well-nourished. HENT: Normocephalic. Atraumatic. Patient has moist mucous membranes. EYES: Extraocular motions are intact. Pupils equal reactive to light bilaterally. NECK: Supple. Trachea is midline. CHEST/LUNGS: Clear to auscultation. There is no respiratory distress noted. HEART/CARDIOVASCULAR: Regular. There is mild to moderate tachycardia. There is no murmur. ABDOMEN: Abdomen is soft, nontender. Patient has normal bowel sounds. There is no abdominal distention. SKIN: Skin is warm and dry. NEURO: The patient is awake, alert, and oriented. The patient is cooperative. The patient has no focal neurologic deficits. The patient has normal speech. MUSCULOSKELETAL: There is no tenderness or deformity. There is no limitation range of motion. There is no evidence of acute injury. ED Course Vital Signs 12/23/17 22:52 Temperature 97.8 F Pulse Rate 109 H Respiratory 14 Rate Blood Pressure 139/96 ED Medical Decision Making - Lab Data Result diagrams: 12/23/17 23:11 12/23/17 23:11 - EKG Data -: EKG Interpreted by Me EKG shows normal: sinus rhythm, axis (left axis deviation), intervals, QRS complexes (low-voltage), ST-T waves Rate: tachycardia (107 bpm) - EKG Data When compared to previous EKG there are: previous EKG unavailable Interpretation: other (sinus tachycardia, left axis deviation, low voltage) - Radiology Data Radiology results: image reviewed interpreted by me: Chest x-ray does not show any acute process. There are no pleural effusions, obvious pneumonia and there is no pneumothorax. - Medical Decision Making This patient presents with a complaint of having passed out and some low blood sugar. EMS did find the patient to have a blood sugar of about 50 at one point and apparently she had been sitting outside of a gas station for a couple of hours. Since the patient has now been here 3 days in a row, I think there may be some concern for the patient not having any appropriate residence or disposition. However the patient did have some borderline low blood sugar on her metabolic panel. She was given a dose of D50. Patient presented with mild to moderate tachycardia with a heart rate going up to about 130. EKG does not show any dysrhythmia but does show some mild sinus tachycardia. No ST elevation [place]. Since the patient has been awake and alert without any further episodes of passing out and possibly the hypoglycemia being the cause, I did not feel that the patient needed repeat CT imaging of the head at this time. She had one done about 3 weeks ago that did not show any bleed, shift, mass or any other acute process. Patient has a mild urinary tract infection. The rest of labs have been unremarkable. She has been given some IV fluid resuscitation which did improve but did not resolve her tachycardia. When the patient gets up or has any exertion, the heart rate goes back up. For these reasons patient will be admitted to the hospital for further evaluation and treatment and was accepted for admission by the hospitalist, Dr. Klein. - Differential Diagnosis vasovagal, hypoglycemia, dysrhythmia, UTI Critical Care Time: No Critical care attestation.: If time is entered above; I have spent that time in minutes in the direct care of this critically ill patient, excluding procedure time. ED Disposition Clinical Impression: Tachycardia, Chronic pain syndrome, Dehydration Syncope Qualifiers: Syncope type: unspecified Qualified Code(s): R55 - Syncope and collapse Disposition: OP ADMIT IP TO THIS HOSP Is pt being admited?: Yes Condition: Fair Time of Disposition: 05:19
--- NOTE | 2017-12-24 00:50 | XRay Report ---
FINAL REPORT EXAM: XR CHEST 1V AP HISTORY: cough TECHNIQUE: A portable upright view the chest was obtained and compared to the study of 09/07/2016. FINDINGS: The heart size and vascularity appear normal. The lungs are clear. Pleural fluid is not seen. There is a Port-A-Cath catheter along the left chest wall with the limb in the superior vena cava. There are EKG leads overlying the chest wall. The skeletal structures do not show any acute changes. IMPRESSION: No acute cardiopulmonary process.
[2017-12-24] MEDS ORDERED: NACL 0.9% 1000 ML 1,000 ML IV ONE (01:37)
[2017-12-24] MEDS ORDERED: D50W (25GM) Syringe IV ONE (01:37)
[2017-12-24 05:27] LABS: Bacteria,Urine 1+ /HPF (Negative); Bilirubin,Urine NEG (Negative); Blood,Urine SM (Negative); Color,Urine Yellow (Yellow); Mucus,Urine FEW /HPF; Protein,Urine <15 mg/dL mg/dL (Negative); Urobilinogen,Urine < 2.0 mg/dL (<2.0)
--- NOTE | 2017-12-24 08:24 | History and Physical Report ---
History of Present Illness Date of examination: 12/24/17 Date of admission: 12/24/17 05:19 Chief complaint: Hypoglycemic episode History of present illness: 42-year-old female patient well known to service with multiple admissions in the past recently discharged to Center to the emergency room with complaints of abdominal pain and hypoglycemia, EMS found him sitting outside a gas station her initial blood sugars were 80s and prior to arrival blood sugars were 50s Patient was given oral glucose mild improvement Requested hospitalist services for admission and further evaluation Past History Past Medical History: other (Lupus, chronic pain syndrome, hypoglycemia, syncope ) Past Surgical History: bowel surgery, Other (PEG tube replacement) Social history: other (homeless). denies: smoking, alcohol abuse Family history: hypertension Medications and Allergies Allergies Allergy/AdvReac Type Severity Reaction Status Date / Time levofloxacin [From Levaquin] Allergy Unknown Verified 12/21/17 17:20 meperidine HCl [From Demerol] Allergy Shortness Verified 12/21/17 17:20 of Breath metoclopramide HCl Allergy Shortness Verified 12/21/17 17:20 [From Reglan] of Breath metronidazole [From Flagyl] Allergy Hives Verified 12/21/17 17:20 morphine Allergy Shortness Verified 12/21/17 17:20 of Breath Home Medications Medication Instructions Recorded Confirmed Last Taken Type ALPRAZolam [Xanax TAB] 2 mg PO BID PRN #20 tablet 09/10/16 12/24/17 12/21/17 Rx Duloxetine HCl [DULoxetine] 60 mg PO DAILY #30 capsule. 09/10/16 12/24/17 Rx Hydroxychloroquine [Plaquenil] 200 mg PO QDAY #30 tablet 09/10/16 12/24/1712/21 Rx Sennosides/Docusate Sodium 1 each PO DAILY #30 tablet 09/10/16 12/24/17 Rx [Senna-Docusate Sodium Tablet] predniSONE [Deltasone] 20 mg PO QDAY #30 tablet 09/10/16 12/24/17 12/21/17 Rx Cyclobenzaprine [Flexeril 10 MG 10 mg PO BID 12/22/17 12/24/17 12/21/17 History TAB] Docusate Sodium [Colace CAP] 100 mg PO BID PRN 12/22/17 12/24/17 12/21/17 History Gabapentin [Neurontin] 300 mg PO Q8HR 12/22/17 12/24/17 12/21/17 History Midodrine HCl 10 mg PO TID 12/22/17 12/24/17 12/21/17 History Morphine [Morphine TAB] 4 mg PO Q4H 12/22/17 12/24/17 12/21/17 History Multivitamin [Multiple Vitamins] 1 each PO QDAY 12/22/17 12/24/17 12/21/17 History Oxycodone HCl [Oxycontin] 10 mg PO Q6H 12/22/17 12/24/17 12/21/17 History Pantoprazole [Protonix TAB] 40 mg PO QDAY #30 tablet 12/22/17 12/24/17 12/21/17 Rx QUEtiapine [SEROquel] 300 mg PO BID 12/22/17 12/24/17 12/21/17 History Rivaroxaban [Xarelto] 20 mg PO QHS 12/22/17 12/24/17 12/21/17 History Sulfamethoxazole/Trimethoprim 1 each PO BID #14 tablet 12/22/17 12/24/17 Rx [Bactrim Ds Tablet] Temazepam 30 mg PO QHS 12/22/17 12/24/17 12/21/17 History Zinc 50 mg PO BID 12/22/17 12/24/17 12/21/17 History diphenhydrAMINE [Benadryl CAP] 50 mg PO Q6H 12/22/17 12/24/17 12/21/17 History Ondansetron [Zofran ODT TAB] 8 mg PO Q8HR #20 tab.rapdis 12/23/17 12/24/1712/21 Rx Promethazine [Phenergan] 25 mg [place] Q6HR PRN #20 supp.rect 12/23/17 12/24/1712/21 Rx Active Meds: Active Medications Nitrofurantoin Macrocrystals (Macrobid) 100 mg PO Q12HR SARTHAK Review of Systems Constitutional: no fever, no chills Ears, nose, mouth and throat: no nasal congestion, no nasal discharge Cardiovascular: no chest pain, no palpitations, no syncope Respiratory: no cough with sputum, no shortness of breath Gastrointestinal: no abdominal pain, no nausea, no vomiting Musculoskeletal: myalgias, no arthritis Integumentary: no rash, no lesions Neurological: weakness, no seizures, no syncope Psychiatric: no anxiety, no depression Endocrine: no cold intolerance, no heat intolerance, no polydipsia, no polyuria Hematologic/Lymphatic: no easy bruising, no easy bleeding Allergic/Immunologic: no urticaria, no allergic rhinitis Exam - Constitutional Vitals: Temp Pulse Resp BP Pulse Ox 97.8 F 107 H 18 123/83 98 12/23/17 22:52 12/24/17 04:30 12/24/17 07:15 12/24/17 04:30 12/24/17 07:15 General appearance: Present: no acute distress, cachectic - EENT Eyes: Present: PERRL, EOM intact - Neck Neck: Present: supple, normal ROM - Respiratory Respiratory effort: labored Respiratory: bilateral: diminished, negative: rales, rhonchi - Cardiovascular Rhythm: regular Heart Sounds: Present: S1 & S2 - Extremities Extremities: no ischemia, No edema - Abdominal General gastrointestinal: Present: soft, non-tender, non-distended, normal bowel sounds - Integumentary Integumentary: Present: clear, warm - Musculoskeletal Musculoskeletal: strength equal bilaterally - Psychiatric Psychiatric: appropriate mood/affect, cooperative - Neurologic Neurologic: moves all extremities Results - Labs CBC & Chem 7: 12/23/17 23:11 12/23/17 23:11 Labs: Abnormal lab results 12/23/17 12/23/17 Range/Units 23:03 23:11 RBC 3.52 L (3.65-5.03) M/mm3 Hgb 9.8 L (10.1-14.3) gm/dl RDW 16.5 H (13.2-15.2) % Lymph % (Auto) 10.1 L (13.4-35.0) % [place] % (Auto) 8.0 H (0.0-7.3) % Lymph # 1.0 L (1.2-5.4) K/mm3 Seg Neutrophils % 79.8 H (40.0-70.0) % Seg Neutrophils # 7.8 H (1.8-7.7) K/mm3 Urine WBC (Auto) 10.0 H (0.0-6.0) /HPF Assessment and Plan --Hypoglycemia; IV fluids D5 normal saline, closely monitor blood sugars, diet as tolerated --Chronic pain syndrome; patient asks for more pain medications continue supportive care --History of lupus continue current management --Recurrent intermittent chest pain; evaluated by cardiology in the past; --Bipolar disorder, continue current management --History of gastric bypass surgery --History of PEG placement short gut syndrome Continue supportive care --Severe malnutrition; nutrition supplements and supportive care --DVT prophylaxis Closely monitor the patient and adjust management as needed
[2017-12-24] MEDS ORDERED: COLACE PO PRN (08:27)
[2017-12-24] MEDS ORDERED: NON-FORMULARY (Duloxetine Hcl [Duloxetine] 60 MG) PO SCH (10:00)
[2017-12-24] MEDS ORDERED: MORPHINE IV PRN ×2 (12:11→15:18)
[2017-12-24] MEDS: PLAQUENIL PO SCH (12:27)
[2017-12-24] MEDS: CYMBALTA PO SCH (12:27)
[2017-12-24] MEDS: DELTASONE PO SCH (12:27)
[2017-12-24] MEDS: NEURONTIN PO SCH ×2 (13:31→23:23)
[2017-12-24] MEDS: MACROBID PO SCH ×2 (13:32→21:46)
[2017-12-24] MEDS: PROTONIX PO SCH (13:32)
[2017-12-24] MEDS: OxyCONTIN PO SCH ×3 (16:02→22:06)
[2017-12-24] MEDS: ZOFRAN IV PRN (17:16)
[2017-12-24] MEDS: XARELTO PO SCH (21:46)
[2017-12-24] MEDS ORDERED: OxyCONTIN PO SCH (22:00)
[2017-12-25] MEDS: BENADRYL IV PRN ×3 (00:12→20:15)
[2017-12-25 06:48] LABS: Basophils % (Auto) 0.2 % (0.0-1.8); Eosinophils # (Auto) 0.1 K/mm3 (0.0-0.4); Hematocrit 27.7 % (30.3-42.9); Lymphocytes # (Auto) 1.2 K/mm3 (1.2-5.4); Lymphocytes % (Auto) 13.4 % (13.4-35.0); Mean Corpuscular HGB Conc 33 % (30-34); Mean Corpuscular Hemoglobin 28 pg (28-32); Mean Corpuscular Volume 85 fl (79-97); Monocytes # (Auto) 0.5 K/mm3 (0.0-0.8); Monocytes % (Auto) 5.2 % (0.0-7.3); Platelet Count 371 K/mm3 (140-440); Red Blood Count 3.28 M/mm3 (3.65-5.03); Red Cell Distribution Width 15.9 % (13.2-15.2)
[2017-12-25 07:03] LABS: BUN/Creatinine Ratio 12; Blood Urea Nitrogen 7 mg/dL (7-17); Calcium 9.2 mg/dL (8.4-10.2); Hemolysis Index 7
[2017-12-25] MEDS: NEURONTIN PO SCH ×3 (08:48→22:56)
[2017-12-25] MEDS ORDERED: MAGNESIUM SULFATE 2GM/50ML 2 GM/50 ML BAG IV ONE (10:00)
[2017-12-25] MEDS ORDERED: D5NS 0.2% 1,000 ML IV SCH (11:00)
[2017-12-25] MEDS: CYMBALTA PO SCH (11:55)
[2017-12-25] MEDS: DELTASONE PO SCH (11:56)
[2017-12-25] MEDS: D5NS 1,000 ML IV SCH (11:56)
[2017-12-25] MEDS: PROTONIX PO SCH (11:56)
[2017-12-25] MEDS: OxyCONTIN PO SCH ×2 (11:56→22:55)
[2017-12-25] MEDS: PLAQUENIL PO SCH (12:02)
[2017-12-25] MEDS: MACROBID PO SCH ×2 (12:02→22:57)
[2017-12-25] MEDS: MORPHINE IV PRN ×2 (12:04→18:12)
--- NOTE | 2017-12-25 15:36 | Discharge Summary ---
Providers - Providers Date of Admission: 12/24/17 05:19 Date of discharge: 12/26/17 Attending physician: FRITZ DOWELL Primary care physician: [employer]PERVISOR Hospitalization Reason for admission: hypoglycemic episodes/severe malnutrition/multiple other complaints Condition: Fair Pertinent studies: Chest x-ray; no acute abnormality Hospital course: 42-year-old female patient with multiple medical problems has mentioned below was admitted through emergency room with hypoglycemic episode Patient was initially evaluated and admitted to the hospital symptomatically managed, patient had multiple unrelated complaints, noncompliant, refusing medications, demanding more pain medicines as well as TPN, Patient is hemodynamically and clinically stable, wanted to walk out of the hospital Security personnel tried to help her, however patient refuses to stay in the hospital and left AGAINST MEDICAL ADVICE. Patient care personnel, health care providers including case management and administrators, tried to discuss patient's social issues and try to help her, patient was offered To discuss about the options of Home health, rehab placement, fdc and other discharge plans, however patient did not cooperate and left AMA. Discharge diagnosis; --Hypoglycemia; improved IV fluids D5 normal saline, closely monitor blood sugars, diet as tolerated --Chronic pain syndrome; patient asks for more pain medications --History of lupus continue current management --Recurrent intermittent chest pain; evaluated by cardiology in the past; --Bipolar disorder, continue current management --History of gastric bypass surgery --History of PEG placement short gut syndrome --Severe malnutrition; nutrition supplements and supportive care Patient left AMA Disposition: [id number] LEFT AGAINST MED ADVICE Time spent for discharge: 31 min Core Measure Documentation - Palliative Care Palliative Care/ Comfort Measures: Not Applicable - Core Measures Any of the following diagnoses?: none Exam - Constitutional Vitals: Temp Pulse Resp BP Pulse Ox 98.7 F 108 H 16 114/78 100 12/25/17 12:27 12/25/17 12:27 12/25/17 12:27 12/25/17 12:27 12/25/17 12:27 General appearance: Present: no acute distress, well-nourished - EENT Eyes: Present: PERRL, EOM intact - Neck Neck: Present: supple, normal ROM - Respiratory Respiratory effort: normal Respiratory: bilateral: diminished, negative: rales, rhonchi, wheezing - Cardiovascular Rhythm: regular Heart Sounds: Present: S1 & S2 - Extremities Extremities: no ischemia, No edema - Abdominal General gastrointestinal: Present: soft, non-tender, non-distended, normal bowel sounds, other (surgical scar/PEG tube in place) - Integumentary Integumentary: Present: clear, warm - Musculoskeletal Musculoskeletal: strength equal bilaterally - Psychiatric Psychiatric: appropriate mood/affect, cooperative - Neurologic Neurologic: moves all extremities Plan Activity: advance as tolerated, fall precautions Diet: advance as tolerated, other (diet as tolerated) Additional Instructions: Diet as tolerated. You have many home medications, advised to review medication list. With primary care physician before resuming them. Advised to follow your private surgeon per schedule. Advised to follow your private wholesale diamond broker per schedule Follow up with: PRIMARY CARE, [Primary Care Provider] - 3-5 Days MARYAM CLINTON DO [Staff Physician] - 7 Days Prescriptions: Magnesium Oxide [Mag-Ox] 400 mg PO QDAY #5 tablet Nitrofurantoin [place]/M-Cryst [Macrobid CAP] 100 mg PO Q12HR #14 capsule
--- NOTE | 2017-12-25 19:17 | Progress Note ---
Assessment and Plan Assessment and plan: --Hypoglycemia; IV fluids D5 normal saline, closely monitor blood sugars, diet as tolerated --Chronic pain syndrome; patient asks for more pain medications continue supportive care --History of lupus continue current management --Recurrent intermittent chest pain; evaluated by cardiology in the past; --Bipolar disorder, continue current management --History of gastric bypass surgery --History of PEG placement short gut syndrome Continue supportive care --Severe malnutrition; nutrition supplements and supportive care --DVT prophylaxis Closely monitor the patient and adjust management as needed History Interval history: Patient seen and examined medical records reviewed Patient feels slightly better, vital signs stable Has multiple complaints unrelated Alert awake oriented 3 Not in acute distress Hospitalist Physical - Constitutional Vitals: Temp Pulse Resp BP Pulse Ox 98.4 F 112 H 20 105/74 100 12/25/17 16:43 12/25/17 16:43 12/25/17 16:43 12/25/17 16:43 12/25/17 16:43 General appearance: Present: no acute distress, well-nourished - EENT Eyes: Present: PERRL, EOM intact - Neck Neck: Present: supple, normal ROM - Respiratory Respiratory effort: normal Respiratory: bilateral: diminished, negative: rales, rhonchi, wheezing - Cardiovascular Rhythm: regular Heart Sounds: Present: S1 & S2 - Extremities Extremities: no ischemia, No edema Peripheral Pulses: within normal limits - Abdominal General gastrointestinal: soft, non-tender, non-distended, normal bowel sounds, other (PEG in place, surgical scars) - Integumentary Integumentary: Present: clear, warm - Psychiatric Psychiatric: appropriate mood/affect, cooperative - Neurologic Neurologic: CNII-XII intact, moves all extremities Results - Labs CBC & Chem 7: 12/25/17 05:45 12/25/17 05:45 Labs: Laboratory Last Values WBC 9.1 K/mm3 (4.5-11.0) 12/25/17 05:45 RBC 3.28 M/mm3 (3.65-5.03) L 12/25/17 05:45 Hgb 9.0 gm/dl (10.1-14.3) L 12/25/17 05:45 Hct 27.7 % (30.3-42.9) L 12/25/17 05:45 MCV 85 fl (79-97) 12/25/17 05:45 MCH 28 pg (28-32) 12/25/17 05:45 MCHC 33 % (30-34) 12/25/17 05:45 RDW 15.9 % (13.2-15.2) H 12/25/17 05:45 Plt Count 371 K/mm3 (140-440) 12/25/17 05:45 Lymph % (Auto) 13.4 % (13.4-35.0) 12/25/17 05:45 [place] % (Auto) 5.2 % (0.0-7.3) 12/25/17 05:45 Eos % (Auto) 1.0 % (0.0-4.3) 12/25/17 05:45 Baso % (Auto) 0.2 % (0.0-1.8) 12/25/17 05:45 Lymph # 1.2 K/mm3 (1.2-5.4) 12/25/17 05:45 [place] # 0.5 K/mm3 (0.0-0.8) 12/25/17 05:45 Eos # 0.1 K/mm3 (0.0-0.4) 12/25/17 05:45 Baso # 0.0 K/mm3 (0.0-0.1) 12/25/17 05:45 Seg Neutrophils % 80.2 % (40.0-70.0) H 12/25/17 05:45 Seg Neutrophils # 7.3 K/mm3 (1.8-7.7) 12/25/17 05:45 PT 13.6 Sec. (12.2-14.9) 12/23/17 23:39 INR 0.99 (0.87-1.13) 12/23/17 23:39 APTT 35.8 Sec. (24.2-36.6) 12/23/17 23:39 Sodium 142 mmol/L (137-145) 12/25/17 05:45 Potassium 4.1 mmol/L (3.6-5.0) 12/25/17 05:45 Chloride 103.1 mmol/L (98-107) 12/25/17 05:45 Carbon Dioxide 23 mmol/L (22-30) 12/25/17 05:45 Anion Gap 20 mmol/L 12/25/17 05:45 BUN 7 mg/dL (7-17) 12/25/17 05:45 Creatinine 0.6 mg/dL (0.7-1.2) L 12/25/17 05:45 Estimated GFR > 60 ml/min 12/25/17 05:45 BUN/Creatinine Ratio 12 % 12/25/17 05:45 Glucose 72 mg/dL (65-100) 12/25/17 05:45 POC Glucose 82 (70-105) 12/25/17 12:45 Calcium 9.2 mg/dL (8.4-10.2) 12/25/17 05:45 Phosphorus 3.20 mg/dL (2.5-4.5) 12/25/17 05:45 Magnesium 1.50 mg/dL (1.7-2.3) L 12/25/17 05:45 Troponin T < 0.010 ng/mL (0.00-0.029) 12/23/17 23:39 TSH 2.440 mlU/mL (0.270-4.200) 12/23/17 23:39 Urine Color Yellow (Yellow) 12/23/17 23:03 Urine Turbidity Slightly-cloudy (Clear) 12/23/17 23:03 Urine pH 7.0 (5.0-7.0) 12/23/17 23:03 Ur Specific [place] 1.009 (1.003-1.030) 12/23/17 23:03 Urine Protein <15 mg/dl mg/dL (Negative) 12/23/17 23:03 Urine Glucose (UA) Neg mg/dL (Negative) 12/23/17 23:03 Urine Ketones Neg mg/dL (Negative) 12/23/17 23:03 Urine Blood Sm (Negative) 12/23/17 23:03 Urine Nitrite Neg (Negative) 12/23/17 23:03 Urine Bilirubin Neg (Negative) 12/23/17 23:03 Urine Urobilinogen < 2.0 mg/dL (<2.0) 12/23/17 23:03 Ur Leukocyte Esterase Tr (Negative) 12/23/17 23:03 Urine WBC (Auto) 10.0 /HPF (0.0-6.0) H 12/23/17 23:03 Urine RBC (Auto) 1.0 /HPF (0.0-6.0) 12/23/17 23:03 U Epithel Cells (Auto) 3.0 /HPF (0-13.0) 12/23/17 23:03 Urine Bacteria (Auto) 1+ /HPF (Negative) 12/23/17 23:03 Urine Mucus Few /HPF 12/23/17 23:03
[2017-12-25] MEDS: XARELTO PO SCH (22:57)
[2017-12-25] MEDS: ZOFRAN IV PRN (23:06)
[2017-12-26] MEDS: MORPHINE IV PRN (02:11)
[2017-12-26] MEDS: BENADRYL IV PRN (02:53)
[2017-12-26] MEDS: NEURONTIN PO SCH (06:32)
[2017-12-26] MEDS: D5NS 1,000 ML IV SCH (06:34)
[2017-12-26 06:51] VITALS: BP 108/74
[2017-12-26] MEDS ORDERED: TRIPLE ANTIBIOTIC TP NR (07:11)
[2017-12-26] MEDS ORDERED: FLUSH HEPARIN IV NR (07:11)
[2017-12-26] MEDS ORDERED: MAGNESIUM SULFATE 2GM/50ML 2 GM/50 ML BAG IV ONE ×2 (10:00→12:17)
--- NOTE | 2017-12-26 10:27 | Progress Note ---
Assessment and Plan Assessment and plan: --Hypomagnesemia; Replace per protocol with IV magnesium sulfate sulfate[patient refused IV medication] Change to oral Mag-Ox, patient refused magnesium oxide --Hypoglycemia; resolved, continue IV fluids --Chronic pain syndrome; patient asks for more pain medications continue supportive care --History of lupus continue current management --Recurrent intermittent chest pain; evaluated by cardiology in the past; --Bipolar disorder, continue current management --History of gastric bypass surgery --History of PEG placement short gut syndrome Continue supportive care --Severe malnutrition; nutrition supplements and supportive care --DVT prophylaxis Closely monitor the patient and adjust management as needed Patient is hemodynamically and clinically stable for discharge Case management try to set up home health services, and ride home However and is very uncooperative, does not give her information truthfully Trying to leave the floor, patient presented to try to help her Patient is refusing de accessing her port, Unable to give [place] home address, Strongly advised to follow with primary care physician in1-2 days History Interval history: Patient seen and examined this morning medical records reviewed Patient is very noncompliant refusing medications Patient has many unrelated symptoms Vital signs stable Alert and awake oriented 3 Has mild hypomagnesemia Hospitalist Physical - Constitutional Vitals: Temp Pulse Resp BP Pulse Ox 97.9 F 107 H 16 108/74 100 12/26/17 06:01 12/26/17 06:01 12/26/17 06:01 12/26/17 06:01 12/26/17 06:01 General appearance: Present: no acute distress, cachectic - EENT Eyes: Present: PERRL, EOM intact - Neck Neck: Present: supple, normal ROM - Respiratory Respiratory effort: normal Respiratory: bilateral: diminished, negative: rales, rhonchi, wheezing - Cardiovascular Rhythm: regular Heart Sounds: Present: S1 & S2 - Extremities Extremities: no ischemia, No edema - Abdominal General gastrointestinal: soft, non-tender, non-distended, normal bowel sounds - Integumentary Integumentary: Present: clear, warm - Psychiatric Psychiatric: appropriate mood/affect, cooperative - Neurologic Neurologic: moves all extremities Results - Labs CBC & Chem 7: 12/25/17 05:45 12/25/17 05:45 Labs: Laboratory Last Values WBC 9.1 K/mm3 (4.5-11.0) 12/25/17 05:45 RBC 3.28 M/mm3 (3.65-5.03) L 12/25/17 05:45 Hgb 9.0 gm/dl (10.1-14.3) L 12/25/17 05:45 Hct 27.7 % (30.3-42.9) L 12/25/17 05:45 MCV 85 fl (79-97) 12/25/17 05:45 MCH 28 pg (28-32) 12/25/17 05:45 MCHC 33 % (30-34) 12/25/17 05:45 RDW 15.9 % (13.2-15.2) H 12/25/17 05:45 Plt Count 371 K/mm3 (140-440) 12/25/17 05:45 Lymph % (Auto) 13.4 % (13.4-35.0) 12/25/17 05:45 [place] % (Auto) 5.2 % (0.0-7.3) 12/25/17 05:45 Eos % (Auto) 1.0 % (0.0-4.3) 12/25/17 05:45 Baso % (Auto) 0.2 % (0.0-1.8) 12/25/17 05:45 Lymph # 1.2 K/mm3 (1.2-5.4) 12/25/17 05:45 [place] # 0.5 K/mm3 (0.0-0.8) 12/25/17 05:45 Eos # 0.1 K/mm3 (0.0-0.4) 12/25/17 05:45 Baso # 0.0 K/mm3 (0.0-0.1) 12/25/17 05:45 Seg Neutrophils % 80.2 % (40.0-70.0) H 12/25/17 05:45 Seg Neutrophils # 7.3 K/mm3 (1.8-7.7) 12/25/17 05:45 PT 13.6 Sec. (12.2-14.9) 12/23/17 23:39 INR 0.99 (0.87-1.13) 12/23/17 23:39 APTT 35.8 Sec. (24.2-36.6) 12/23/17 23:39 Sodium 142 mmol/L (137-145) 12/25/17 05:45 Potassium 4.1 mmol/L (3.6-5.0) 12/25/17 05:45 Chloride 103.1 mmol/L (98-107) 12/25/17 05:45 Carbon Dioxide 23 mmol/L (22-30) 12/25/17 05:45 Anion Gap 20 mmol/L 12/25/17 05:45 BUN 7 mg/dL (7-17) 12/25/17 05:45 Creatinine 0.6 mg/dL (0.7-1.2) L 12/25/17 05:45 Estimated GFR > 60 ml/min 12/25/17 05:45 BUN/Creatinine Ratio 12 % 12/25/17 05:45 Glucose 72 mg/dL (65-100) 12/25/17 05:45 POC Glucose 82 (70-105) 12/25/17 12:45 Calcium 9.2 mg/dL (8.4-10.2) 12/25/17 05:45 Phosphorus 3.20 mg/dL (2.5-4.5) 12/25/17 05:45 Magnesium 1.50 mg/dL (1.7-2.3) L 12/26/17 05:01 Troponin T < 0.010 ng/mL (0.00-0.029) 12/23/17 23:39 TSH 2.440 mlU/mL (0.270-4.200) 12/23/17 23:39 Urine Color Yellow (Yellow) 12/23/17 23:03 Urine Turbidity Slightly-cloudy (Clear) 12/23/17 23:03 Urine pH 7.0 (5.0-7.0) 12/23/17 23:03 Ur Specific [place] 1.009 (1.003-1.030) 12/23/17 23:03 Urine Protein <15 mg/dl mg/dL (Negative) 12/23/17 23:03 Urine Glucose (UA) Neg mg/dL (Negative) 12/23/17 23:03 Urine Ketones Neg mg/dL (Negative) 12/23/17 23:03 Urine Blood Sm (Negative) 12/23/17 23:03 Urine Nitrite Neg (Negative) 12/23/17 23:03 Urine Bilirubin Neg (Negative) 12/23/17 23:03 Urine Urobilinogen < 2.0 mg/dL (<2.0) 12/23/17 23:03 Ur Leukocyte Esterase Tr (Negative) 12/23/17 23:03 Urine WBC (Auto) 10.0 /HPF (0.0-6.0) H 12/23/17 23:03 Urine RBC (Auto) 1.0 /HPF (0.0-6.0) 12/23/17 23:03 U Epithel Cells (Auto) 3.0 /HPF (0-13.0) 12/23/17 23:03 Urine Bacteria (Auto) 1+ /HPF (Negative) 12/23/17 23:03 Urine Mucus Few /HPF 12/23/17 23:03
[2017-12-26] MEDS ORDERED: MAG-OX PO SCH (11:00)
[2017-12-26] MEDS: ZOFRAN IV PRN (11:03)
[2017-12-26] MEDS: OxyCONTIN PO SCH ×2 (11:03→11:22)
[2017-12-26] MEDS: CYMBALTA PO SCH ×2 (11:04→11:22)
[2017-12-26] MEDS: PROTONIX PO SCH (11:04)
[2017-12-26] MEDS: DELTASONE PO SCH (11:05)
[2017-12-26] MEDS: PLAQUENIL PO SCH (11:05)
[2017-12-26] MEDS: MACROBID PO SCH ×2 (11:06→11:22)
== END 2017-12-26 12:30 | disposition left against medical advice (07) ==
LOC: ED 22:50 → 4A 12-24 05:19 → 3A 12-24 08:18
PROVIDERS: ADMIT Internal Medicine; ATTEND Internal Medicine
DX: E16.2 Hypoglycemia, unspecified (principal); M32.9 Systemic lupus erythematosus, unspecified; G89.4 Chronic pain syndrome; R07.89 Other chest pain; E43 Unspecified severe protein-calorie malnutrition; I11.0 Hypertensive heart disease with heart failure; I50.9 Heart failure, unspecified; I25.10 Atherosclerotic heart disease of native coronary artery without angina pectoris; F43.10 Post-traumatic stress disorder, unspecified; E83.42 Hypomagnesemia; B19.20 Unspecified viral hepatitis C without hepatic coma; F31.9 Bipolar disorder, unspecified; F41.9 Anxiety disorder, unspecified; I25.2 Old myocardial infarction; Z98.84 Bariatric surgery status; Z86.73 Personal history of transient ischemic attack (TIA), and cerebral infarction without residual deficits; Z86.711 Personal history of pulmonary embolism; Z85.6 Personal history of leukemia; Z68.26 Body mass index [BMI] 26.0-26.9, adult; Z53.21 Procedure and treatment not carried out due to patient leaving prior to being seen by health care provider
CPT/HCPCS: 36415; 71045; 80048; 81001; 82962; 83735; 84100; 84443; 84484; 85025; 85610; 85730; 87116; 93005; 93010; 96361; 96365; 96366; 96375; 96376; 99285; G0378; J1200; J2270; J2405; J3475; J7030; J7042; J7512